=== PATIENT | male | born 1935 | race Caucasian/White ===

== ENCOUNTER 2022-02-16 16:18 | Inpatient (IN) | payer MEDICARE ==
[2022-02-16] MEDS ORDERED: SODIUM CHLORIDE 0.9% 500 ML 500 ML IV STA (16:56)
[2022-02-16 17:41] LABS: Basophils % (A) 0 %; Eosinophils # (A) 0.1 k/uL (0-0.7); Eosinophils % (A) 1 %; HGB 7.8 gm/dL (13.0-17.5); Hypochromasia Slight; Lymphocytes # (A) 1.3 k/uL (1.0-4.8); Lymphocytes % (A) 21 %; MCH 33.3 pg (25.0-35.0); MCHC 32.6 g/dL (31.0-37.0); MCV 102.2 fL (80.0-100.0); Macrocytosis Slight; Mean Platelet Volume 7.9; Monocytes # (A) 0.3 k/uL (0-1.0); Monocytes % (A) 5 %; Neutrophils # (A) 4.3 k/uL (1.3-7.7); Neutrophils % (A) 69 %; Platelet Count 223 k/uL (150-450); RBC 2.35 m/uL (4.30-5.90); RDW 14.3 % (11.5-15.5); WBC 6.2 k/uL (3.8-10.6)
[2022-02-16 17:47] LABS: Calcium 8.8 mg/dL (8.4-10.2); Potassium 4.8 mmol/L (3.5-5.1); Total Bilirubin 0.2 mg/dL (0.2-1.3); Total Protein 6.2 g/dL (6.3-8.2)
[2022-02-16 17:59] LABS: Prothrombin Time 10.5 sec (9.0-12.0)
[2022-02-16 18:03] LABS: Partial Thromboplastin Time 21.6 sec (22.0-30.0)
--- NOTE | 2022-02-16 18:08 | XR ---
EXAMINATION TYPE: XR chest 2V DATE OF EXAM: 02/16/2022 COMPARISON: NONE HISTORY: Cough TECHNIQUE: Frontal and lateral views of the chest are obtained. FINDINGS: There is no focal air space opacity, pleural effusion, or pneumothorax seen. The cardiac silhouette size is within normal limits. Prior cardiothoracic postsurgical changes seen. The osseous structures are intact. IMPRESSION: No acute cardiopulmonary process.
--- NOTE | 2022-02-16 18:11 | ED ---
General Adult HPI - General Chief complaint: GI Bleed Stated complaint: Dizziness,Weakness Time Seen by Provider: 02/16/22 16:55 Source: patient Mode of arrival: ambulatory Limitations: no limitations - History of Present Illness Initial comments: Ba is a pleasant 87-year-old gentleman who presents the emergency department today for evaluation of generalized weakness and near-syncope. Patient reports he's been feeling unwell for approximately a month, he did have outpatient labs done 9 days ago which showed some anemia with hemoglobin of 9.0. He followed with his primary care physician on Thursday and was started on a PPI as well as iron supplementation. Patient states that today he walked up the stairs to use the computer he got very lightheaded and thought he was given a past out, he felt better after sitting down but because he nearly passed out and has been feeling so weak he decided to come to the ER for evaluation. Patient denies any chest pain. He does have exertional shortness of breath. No fevers or chills. He has been having dark stools for over a month. - Related Data Home Medications Medication Instructions Recorded Confirmed ALPRAZolam [Xanax] 0.25 mg PO BID PRN 02/16/22 02/16/22 Aspirin EC [Ecotrin Low Dose] 81 mg PO DAILY 02/16/22 02/16/22 Bumetanide [BUMEX] See Taper PO DAILY 02/16/22 02/16/22 Ferrous Sulfate [Iron] 325 mg PO DAILY 02/16/22 02/16/22 Losartan Potassium 100 mg PO DAILY 02/16/22 02/16/22 Melatonin 5 mg PO HS PRN 02/16/22 02/16/22 Metoprolol Succinate (ER) [Toprol 100 mg PO DAILY 02/16/22 02/16/22 Xl] Multivitamins, Thera [Multivitamin 1 tab PO DAILY 02/16/22 02/16/22 (formulary)] Pantoprazole Sodium [Protonix] 40 mg PO DAILY 02/16/22 02/16/22 Pravastatin Sodium [Pravachol] 40 mg PO DAILY 02/16/22 02/16/22 amLODIPine [Norvasc] 5 mg PO DAILY 02/16/22 02/16/22 Allergies Allergy/AdvReac Type Severity Reaction Status Date / Time No Known Allergies Allergy Verified 02/16/22 16:37 Review of Systems ROS Statement: Those systems with pertinent positive or pertinent negative responses have been documented in the HPI. ROS Other: All systems not noted in ROS Statement are negative. Past Medical History Past Medical History: Cancer, Hyperlipidemia, Hypertension History of Any Multi-Drug Resistant Organisms: None Reported Past Surgical History: Coronary Bypass/CABG, Heart Catheterization With Stent, Hernia Repair, Orthopedic Surgery, Pacemaker, Prostate Surgery Past Psychological History: No Psychological Hx Reported Smoking Status: Former smoker Past Alcohol Use History: Daily Past Drug Use History: None Reported General Exam - General Exam Comments Initial Comments: Physical Exam GENERAL: Chronically ill appearing, pale Patient is well-developed and well-nourished. Patient is nontoxic and well-hydrated and is in no distress. HENT: Normocephalic, Atraumatic. EYES: PERRL, EOMI Conjunctival Pallor PULMONARY: Unlabored respirations. Crackles at bases CARDIOVASCULAR: There is a regular rate and rhythm without any murmurs gallops or rubs. ABDOMEN: Soft and nontender with normal bowel sounds. SKIN: Pale Skin is clear with no lesions or rashes and otherwise unremarkable. : Deferred NEUROLOGIC: Patient is alert and oriented x3. Moving all extremities spontaneously MUSCULOSKELETAL: Normal extremities with adequate strength and full range of motion. No lower extremity swelling or edema. No calf tenderness. PSYCHIATRIC: Normal psychiatric evaluation. Limitations: no limitations Course Vital Signs 02/16/22 16:32 Temperature 97.5 F L Pulse Rate 55 L Respiratory 16 Rate Blood Pressure 110/43 O2 Sat by Pulse 100 Oximetry Medical Decision Making - Medical Decision Making The patient was seen and evaluated, history is obtained from the patient, patient appears pale he had a near syncopal episode and reports he's had one m onth of melena, patient currently on a PPI as well as iron supplementation. Repeat labs today reveal worsening anemia with a hemoglobin of only 7.8. This time we'll plan with the patient in observation unit for evaluation by GI. Patient care was discussed with Dr. Cardona who accepts the admission. - Lab Data Result diagrams: 02/16/22 17:02 02/16/22 17:02 Lab Results 02/16/22 02/16/22 02/16/22 Range/Units 17:00 17:02 17:02 WBC 6.2 (3.8-10.6) k/uL RBC 2.35 L (4.30-5.90) m/uL Hgb 7.8 L (13.0-17.5) gm/dL Hct 24.0 L (39.0-53.0) % MCV 102.2 H (80.0-100.0) fL MCH 33.3 (25.0-35.0) pg MCHC 32.6 (31.0-37.0) g/dL RDW 14.3 (11.5-15.5) % Plt Count 223 (150-450) k/uL MPV 7.9 Neutrophils % 69 % Lymphocytes % 21 % Monocytes % 5 % Eosinophils % 1 % Basophils % 0 % Neutrophils # 4.3 (1.3-7.7) k/uL Lymphocytes # 1.3 (1.0-4.8) k/uL Monocytes # 0.3 (0-1.0) k/uL Eosinophils # 0.1 (0-0.7) k/uL Basophils # 0.0 (0-0.2) k/uL Hypochromasia Slight Macrocytosis Slight PT 10.5 (9.0-12.0) sec INR 1.0 (<1.2) APTT 21.6 L (22.0-30.0) sec Sodium (137-145) mmol/L Potassium (3.5-5.1) mmol/L Chloride (98-107) mmol/L Carbon Dioxide (22-30) mmol/L Anion Gap mmol/L BUN (9-20) mg/dL Creatinine (0.66-1.25) mg/dL Est GFR (CKD-EPI)AfAm (>60 ml/min/1.73 sqM) Est GFR (CKD-EPI)NonAf (>60 ml/min/1.73 sqM) Glucose (74-99) mg/dL Plasma Lactic Acid Christo (0.7-2.0) mmol/L Calcium (8.4-10.2) mg/dL Total Bilirubin (0.2-1.3) mg/dL AST (17-59) U/L ALT (4-49) U/L Alkaline Phosphatase (38-126) U/L Total Protein (6.3-8.2) g/dL Albumin (3.5-5.0) g/dL Blood Type Blood Type Confirm A Positive Blood Type Recheck Bld Type Recheck Status Antibody Screen Spec Expiration Date 02/16/22 02/16/22 02/16/22 Range/Units 17:02 17:02 17:15 WBC (3.8-10.6) k/uL RBC (4.30-5.90) m/uL Hgb (13.0-17.5) gm/dL Hct (39.0-53.0) % MCV (80.0-100.0) fL MCH (25.0-35.0) pg MCHC (31.0-37.0) g/dL RDW (11.5-15.5) % Plt Count (150-450) k/uL MPV Neutrophils % % Lymphocytes % % Monocytes % % Eosinophils % % Basophils % % Neutrophils # (1.3-7.7) k/uL Lymphocytes # (1.0-4.8) k/uL Monocytes # (0-1.0) k/uL Eosinophils # (0-0.7) k/uL Basophils # (0-0.2) k/uL Hypochromasia Macrocytosis PT (9.0-12.0) sec INR (<1.2) APTT (22.0-30.0) sec Sodium 135 L (137-145) mmol/L Potassium 4.8 (3.5-5.1) mmol/L Chloride 102 (98-107) mmol/L Carbon Dioxide 26 (22-30) mmol/L Anion Gap 7 mmol/L BUN 28 H (9-20) mg/dL Creatinine 1.65 H (0.66-1.25) mg/dL Est GFR (CKD-EPI)AfAm 43 (>60 ml/min/1.73 sqM) Est GFR (CKD-EPI)NonAf 37 (>60 ml/min/1.73 sqM) Glucose 110 H (74-99) mg/dL Plasma Lactic Acid Christo 1.1 (0.7-2.0) mmol/L Calcium 8.8 (8.4-10.2) mg/dL Total Bilirubin 0.2 (0.2-1.3) mg/dL AST 27 (17-59) U/L ALT 15 (4-49) U/L Alkaline Phosphatase 38 (38-126) U/L Total Protein 6.2 L (6.3-8.2) g/dL Albumin 4.0 (3.5-5.0) g/dL Blood Type A Positive Blood Type Confirm Blood Type Recheck No Previous Record Bld Type Recheck Status CABO Indicated Antibody Screen NEGATIVE Spec Expiration Date 02/19/20222314 Disposition Clinical Impression: Blood loss anemia, Melena, LUPE (acute kidney injury) Disposition: ADMITTED IP TO THIS [facility] Condition: Serious Referrals: Kuldip Bautista MD [Primary Care Provider] - 1-2 days
[2022-02-16] MEDS ORDERED: NALOXONE 0.4 MG/ML 1 ML VIAL IV PRN (18:38)
[2022-02-17] MEDS ORDERED: MELATONIN 5 MG TABLET PO PRN (07:57)
[2022-02-17] MEDS ORDERED: ALPRAZolam 0.25 MG TAB PO PRN (07:57)
[2022-02-17 08:36] LABS: HCT 24.4 % (39.0-53.0); HGB 7.6 gm/dL (13.0-17.5); Hypochromasia Slight; MCH 32.6 pg (25.0-35.0); MCHC 31.1 g/dL (31.0-37.0); Macrocytosis Moderate; Platelet Count 194 k/uL (150-450); RBC 2.33 m/uL (4.30-5.90); WBC 6.2 k/uL (3.8-10.6)
[2022-02-17] MEDS ORDERED: SODIUM FERRIC GLUCONAT-SUCROSE 125 MG in SODIUM CHLORIDE 0.9% 100 ML IVPB ONE (08:45)
[2022-02-17 08:47] LABS: African American GFR (CKD) 47 (>60 ml/min/1.73 sqM); Anion Gap 6 mmol/L; Blood Urea Nitrogen 24 mg/dL (9-20); Calcium 8.4 mg/dL (8.4-10.2); Carbon Dioxide 27 mmol/L (22-30); Chloride 106 mmol/L (98-107); Glucose 110 mg/dL (74-99); Non-African American GFR(CKD) 40 (>60 ml/min/1.73 sqM); Potassium 4.6 mmol/L (3.5-5.1); Sodium 139 mmol/L (137-145)
[2022-02-17] MEDS: PANTOPRAZOLE 40 MG/10 ML VIAL IVP SCH ×2 (09:03→21:07)
[2022-02-17] MEDS: METOPROLOL SUCCINATE (ER) 100 MG TAB.ER.24H PO SCH (09:03)
[2022-02-17] MEDS: PRAVASTATIN SODIUM 40 MG TAB PO SCH (09:03)
[2022-02-17] MEDS: FERROUS SULFATE 325 MG TAB PO SCH (09:03)
[2022-02-17] MEDS: MULTIVITAMINS, THERA 1 EACH TAB PO SCH (09:03)
[2022-02-17] MEDS: amLODIPine 5 MG TAB PO SCH (09:03)
[2022-02-17] MEDS: SODIUM CHLORIDE 0.9% 1,000 ML IV SCH ×2 (09:03→21:09)
--- NOTE | 2022-02-17 09:40 | P.HPIM ---
History of Present Illness H&P Date: 02/17/22 HISTORY OF PRESENT ILLNESS This is an 87-year-old male patient of Dr. Bautista with past medical history of hypertension, hyperlipidemia, coronary artery disease status post CABG, status post permanent pacemaker, history of prostate cancer, chronic kidney disease stage III, chronic anemia, borderline diabetes. Patient follows with enterprise resource planning consultant Dr. Villagran. Patient came back from [place] this year with increased confusion from his baseline. Patient was recently in the office found to have a hemoglobin of 9.0 and started on Protonix and iron. Patient has had generalized weakness for the past month. He denies having any abdominal pain and no diarrhea. Patient also complaining of head congestion and sinus drainage. Patient presented to [facility] emergency center and found to be afebrile, heart rate 55, blood pressure 110/43, pulse ox 100% on room air. WBC 6.2, hemoglobin 7.8, platelet count 223. INR 1.0. Sodium 135, potassium 4.8, chloride 102, CO2 26, BUN 28 creatinine 1.65. Blood sugar 110. Lactic acid 1.1. Calcium 8.8. Liver function tests were normal. Troponin negative. Albumin 4.0. Stool for occult blood positive. Chest x-ray reveals no acute cardiopulmonary process. Patient is status post 0.5 L IV fluid, placed on the observation unit and consult with GI, Iron infusion ordered. REVIEW OF SYSTEMS Constitutional: No fever, no chills, no night sweats. No weight change. Reports weakness, Reports fatigue no lethargy. No daytime sleepiness. EENT: No headache. No blurred vision or double vision, no loss of vision. No loss of Hearing, no ringing in the ears, no dizziness. Reports nasal drainage or congestion. No epistaxis. No sore throat. Lungs: No shortness of breath, cough, no sputum production. No wheezing. Cardiovascular: No chest pain, no lower extremity edema. No palpitations. No paroxysmal nocturnal dyspnea. No orthopnea. No lightheadedness or dizziness. No syncopal episodes. Abdominal: No abdominal pain. No nausea, vomiting. No diarrhea. No constipation. Reports tarry stools. No loss of appetite. Genitourinary: No dysuria, increased frequency, urgency. No urinary retention. Musculoskeletal: No myalgias. No muscle weakness, no gait dysfunction, no frequent falls. No back pain. No neck pain. Integumentary: No wounds, no lesions. No rash or pruritus. No unusual bruising. No change in hair or nails. Neurologic: No aphasia. No facial droop. Reports chronic change in mentation. No head injury. No headache. No paralysis. No paresthesia. Psychiatric: No depression. No anxiety. No mood swings. Endocrine: No abnormal blood sugars. No weight change. No excessive sweating or thirst. No cold intolerance. SOCIAL HISTORY Patient smoked in the distant past briefly only. No alcohol use, no illicit drug use. He lives with his of 67 years. They winter in [place]. FAMILY HISTORY Father is from alcohol complications. Mother in her 70s patient does not recall her health history. Patient has 1 brother and 1 sister and is unable to recall their health history. Patient has 3 children one daughter from some type of cancer. 2 other children are without any major medical problems. PHYSICAL EXAMINATION Gen: This is an 87-year-old male. He is resting bed appears to be comfortable and in no acute distress. HEENT: Head is atraumatic, normocephalic. Pupils equal, round. Sclerae is anicteric. NECK: Supple. No JVD. No lymphadenopathy. No thyromegaly. LUNGS: Clear to auscultation. No wheezes or rhonchi. No intercostal retractions. HEART: Regular rate and rhythm. No murmur. ABDOMEN: Soft. Bowel sounds are present. No masses. No tenderness. EXTREMITIES: No pedal edema. No calf tenderness. NEUROLOGICAL: Patient is awake, alert and oriented x3. Cranial nerves 2 through 12 are grossly intact. ASSESSMENT AND PLAN 1. Acute GI bleed with tarry stools. Repeat hemoglobin, GI consult for EGD and colonoscopy scheduled for tomorrow, Protonix 40 g IV push twice daily, start patient on IV fluids 0.9 normal saline at 75 mL per hour. 2. Acute blood loss anemia due to acute GI bleed. Patient will undergo infusion of Ferrlecit 1, recheck hemoglobin and monitor closely. 3. Hypertension, blood pressure currently soft. Resume Norvasc 5 mg daily, hold losartan, Bumex. 4. Hyperlipidemia. Continue pravastatin 40 mg daily. 5. Coronary artery disease with previous CABG. Continue Toprol-XL 100 mg d aily, pravastatin. 6. History of prostate cancer, stable. 7. History of permanent pacemaker, stable. 8. Chronic kidney disease stage III with baseline creatinine of 1.5. 9. Chronic ALLERGIES. Patient started on Flonase and Claritin. 10. Borderline diabetes. Patient not currently on medications. 11. GI prophylaxis. Protonix. 12. DVT prophylaxis. SCDs and EDEN hose. Patient will be admitted to the hospital for a minimum of 2 night stay. DISCHARGE PLAN Most likely return home. PT and OT consults added. Impression and plan of care have been directed as dictated by the signing physician. Mary Leiva nurse practitioner acting as scribe for signing ph ysician. Past Medical History Past Medical History: Cancer, Hyperlipidemia, Hypertension History of Any Multi-Drug Resistant Organisms: None Reported Past Surgical History: Coronary Bypass/CABG, Heart Catheterization With Stent, Hernia Repair, Orthopedic Surgery, Pacemaker, Prostate Surgery Past Anesthesia/Blood Transfusion Reactions: No Reported Reaction Date of Last Stent Placement:: unsure Type of Cardiac Device: Permanent Pacemaker Device Placement Date:: unsure Past Psychological History: No Psychological Hx Reported Smoking Status: Never smoker Past Alcohol Use History: Daily Past Drug Use History: None Reported Medications and Allergies Home Medications Medication Instructions Recorded Confirmed Type ALPRAZolam [Xanax] 0.25 mg PO BID PRN 02/16/22 02/16/22 History Aspirin EC [Ecotrin Low Dose] 81 mg PO DAILY 02/16/22 02/16/22 History Bumetanide [BUMEX] See Taper PO DAILY 02/16/22 02/16/22 History Ferrous Sulfate [Iron] 325 mg PO DAILY 02/16/22 02/16/22 History Losartan Potassium 100 mg PO DAILY 02/16/22 02/16/22 History Melatonin 5 mg PO HS PRN 02/16/22 02/16/22 History Metoprolol Succinate (ER) [Toprol 100 mg PO DAILY 02/16/22 02/16/22 History Xl] Multivitamins, Thera [Multivitamin 1 tab PO DAILY 02/16/22 02/16/22 History (formulary)] Pantoprazole Sodium [Protonix] 40 mg PO DAILY 02/16/22 02/16/22 History Pravastatin Sodium [Pravachol] 40 mg PO DAILY 02/16/22 02/16/22 History amLODIPine [Norvasc] 5 mg PO DAILY 02/16/22 02/16/22 History Allergies Allergy/AdvReac Type Severity Reaction Status Date / Time No Known Allergies Allergy Verified 02/16/22 16:37 Physical Exam Vitals: Vital Signs Temp Pulse Pulse Resp BP BP Pulse Ox 02/17/22 01:45 97.5 F L 58 L 18 106/46 96 02/17/22 01:27 18 02/16/22 22:26 18 02/16/22 19:45 97.8 F 55 L 18 138/71 100 02/16/22 19:40 97.8 F 55 L 18 138/71 100 02/16/22 19:08 97.5 F L 60 18 133/64 98 02/16/22 18:16 60 18 133/64 98 02/16/22 16:32 97.5 F L 55 L 16 110/43 100 Intake and Output 02/16/22 02/17/22 02/17/22 22:59 06:59 14:59 Other: Voiding Method Toilet Toilet # Voids 2 2 Weight 76.204 kg Results CBC & Chem 7: 02/17/22 08:19 02/17/22 08:19 Labs: Abnormal Lab Results - Last 24 Hours (Table) 02/16/22 02/16/22 02/16/22 Range/Units 17:02 17:02 17:02 RBC 2.35 L (4.30-5.90) m/uL Hgb 7.8 L (13.0-17.5) gm/dL Hct 24.0 L (39.0-53.0) % MCV 102.2 H (80.0-100.0) fL APTT 21.6 L (22.0-30.0) sec Sodium 135 L (137-145) mmol/L BUN 28 H (9-20) mg/dL Creatinine 1.65 H (0.66-1.25) mg/dL Glucose 110 H (74-99) mg/dL Total Protein 6.2 L (6.3-8.2) g/dL Thrombosis Risk Factor Assmnt - Choose All That Apply Any of the Below Risk Factors Present?: No Other Risk Factors: Yes Each Risk Factor Represents 3 Points: Age 75 years or older Other congenital or acquired thrombophilia - If yes, enter type in comment: No Thrombosis Risk Factor Assessment Total Risk Factor Score: 3 Thrombosis Risk Factor Assessment Level: Moderate Risk
[2022-02-17] MEDS ORDERED: PEG 3350-NA SULF,BICARB,CL/KCL 4,000 ML BOTTLE PO ONE (15:00)
--- NOTE | 2022-02-17 15:03 | P.CONS ---
History of Present Illness - Reason for Consult Consult date: 02/17/22 Anemia, GI bleed Requesting physician: Kuldip Bautista - Chief Complaint Dizziness, weakness - History of Present Illness This is an 87-year-old male patient of Dr. Bautista with past medical history of hypertension, hyperlipidemia, coronary artery disease status post CABG, status post permanent pacemaker, history of prostate cancer, chronic kidney disease stage III, chronic anemia, borderline diabetes. Patient follows with mail censor Dr. Villagran. Patient was recently in the office found to have a hemoglobin of 9.0 and started on Protonix and iron. Patient has had generalized weakness for the past month. states that he has been having increased hea d congestion, nasal congestion and output. States that he's been feeling dizzy from it. States he's been using antihistamines without much help. On admission patient was known to have a hemoglobin 7.8. Gastroenterology was consulted for anemia with possible GI bleed. Patient reports black stools for the last 1-2 week duration. Denies any NSAID use, no acid reflux, generally uses Tylenol for pain. Last colonoscopy he reports is greater than 10 years ago. No history of peptic ulcer disease or EGD. Patient did have a possible occult stool. WBC 6.2 hemoglobin 2.7.6 hematocrit 24 platelet count 194,000. INR 1.0 BUN 24 creatinine 1.3 total bilirubin 0.2 AST 27 ALT 15 alkaline phosphatase 38 Review of Systems REVIEW OF SYSTEMS: CARDIOPULMONARY: No chest pain or shortness of breath. Gastrointestinal: No abdominal pain.. No nausea or vomiting. No hematemesis, coffee-ground emesis. Black stool 1-2 weeks duration. No rectal bleeding GENITOURINARY: No dysuria or hematuria. MUSCULOSKELETAL: Reports normal range of motion., Joint pain. SKIN: No rashes. No jaundice. ENDOCRINE: No chills, fevers. No excessive weight gain or loss. No polydipsia or polyuria. PSYCHIATRIC: Unremarkable. NEUROLOGY: No change in mental status. Dizziness, sinus pressure. ENT: Vision unremarkable. CONSTITUTIONAL: No recent weight loss. No fever, chills, night sweats. Increased weakness. Past Medical History Past Medical History: Cancer, Hyperlipidemia, Hypertension History of Any Multi-Drug Resistant Organisms: None Reported Past Surgical History: Coronary Bypass/CABG, Heart Catheterization With Stent, Hernia Repair, Orthopedic Surgery, Pacemaker, Prostate Surgery Past Anesthesia/Blood Transfusion Reactions: No Reported Reaction Date of Last Stent Placement:: unsure Type of Cardiac Device: Permanent Pacemaker Device Placement Date:: unsure Past Psychological History: No Psychological Hx Reported Smoking Status: Never smoker Past Alcohol Use History: Daily Past Drug Use History: None Reported Medications and Allergies Home Medications Medication Instructions Recorded Confirmed Type ALPRAZolam [Xanax] 0.25 mg PO BID PRN 02/16/22 02/16/22 History Aspirin EC [Ecotrin Low Dose] 81 mg PO DAILY 02/16/22 02/16/22 History Bumetanide [BUMEX] See Taper PO DAILY 02/16/22 02/16/22 History Ferrous Sulfate [Iron] 325 mg PO DAILY 02/16/22 02/16/22 History Losartan Potassium 100 mg PO DAILY 02/16/22 02/16/22 History Melatonin 5 mg PO HS PRN 02/16/22 02/16/22 History Metoprolol Succinate (ER) [Toprol 100 mg PO DAILY 02/16/22 02/16/22 History Xl] Multivitamins, Thera [Multivitamin 1 tab PO DAILY 02/16/22 02/16/22 History (formulary)] Pantoprazole Sodium [Protonix] 40 mg PO DAILY 02/16/22 02/16/22 History Pravastatin Sodium [Pravachol] 40 mg PO DAILY 02/16/22 02/16/22 History amLODIPine [Norvasc] 5 mg PO DAILY 02/16/22 02/16/22 History Allergies Allergy/AdvReac Type Severity Reaction Status Date / Time No Known Allergies Allergy Verified 02/16/22 16:37 Physical Exam Vitals: Vital Signs Temp Pulse Pulse Resp BP BP BP 02/17/22 08:00 66 02/17/22 07:00 97.9 F 66 16 120/61 02/17/22 01:45 97.5 F L 58 L 18 106/46 02/17/22 01:27 18 02/16/22 22:26 18 02/16/22 19:45 97.8 F 55 L 18 138/71 02/16/22 19:40 97.8 F 55 L 18 138/71 02/16/22 19:08 97.5 F L 60 18 133/64 02/16/22 18:16 60 18 133/64 02/16/22 16:32 97.5 F L 55 L 16 110/43 Pulse Ox 02/17/22 08:00 02/17/22 07:00 96 02/17/22 01:45 96 02/17/22 01:27 02/16/22 22:26 02/16/22 19:45 100 02/16/22 19:40 100 02/16/22 19:08 98 02/16/22 18:16 98 02/16/22 16:32 100 Intake and Output 02/16/22 02/17/22 02/17/22 22:59 06:59 14:59 Other: Voiding Method Toilet Toilet Toilet # Voids 2 2 Weight 76.204 kg General appearance: The patient is alert, oriented, appears in no acute distress. HET: Head is normocephalic and atraumatic. Conjunctiva pink. Sclera anicteric. Neck: Supple without lymphadenopathy. Trachea midline. Heart: S1 S2. Regular rate and rhythm. Lungs: Clear to auscultation. Abdomen: Soft, nontender, nondistended with bowel sounds. No guarding or rigidity. Skin: No rashes. No jaundice. Extremities: Normal skin color and turgor. No pedal edema. Neurological: No focal deficits. Alert and oriented x3. Results CBC & Chem 7: 02/17/22 08:19 02/17/22 08:19 Labs: Abnormal Lab Results - Last 24 Hours (Table) 02/16/22 02/16/22 02/16/22 Range/Units 17:02 17:02 17:02 RBC 2.35 L (4.30-5.90) m/uL Hgb 7.8 L (13.0-17.5) gm/dL Hct 24.0 L (39.0-53.0) % MCV 102.2 H (80.0-100.0) fL APTT 21.6 L (22.0-30.0) sec Sodium 135 L (137-145) mmol/L BUN 28 H (9-20) mg/dL Creatinine 1.65 H (0.66-1.25) mg/dL Glucose 110 H (74-99) mg/dL Total Protein 6.2 L (6.3-8.2) g/dL 05/23/22 05/23/22 Range/Units 08:19 08:19 RBC 2.33 L (4.30-5.90) m/uL Hgb 7.6 L (13.0-17.5) gm/dL Hct 24.4 L (39.0-53.0) % MCV 105.0 H (80.0-100.0) fL APTT (22.0-30.0) sec Sodium (137-145) mmol/L BUN 24 H (9-20) mg/dL Creatinine 1.53 H (0.66-1.25) mg/dL Glucose 110 H (74-99) mg/dL Total Protein (6.3-8.2) g/dL Assessment and Plan (1) Anemia Narrative/Plan: 87-year-old male who presented to the emergency department with increased weakness. He had been reporting black stool over the last 1-2 weeks duration. He was seen outpatient had a hemoglobin of 9 was started on oral iron. He denies any abdominal pain, nausea or vomiting. No NSAID use, acid reflux or history of peptic ulcer disease. No previous EGD. Last colonoscopy was greater than 10 years ago. On admission he was known to be anemic at 7.6. Currently receiving IV iron. We'll proceed with EGD and colonoscopy as patient has not had a colonoscopy in greater than 10 years. Avoid NSAIDs. Protonix 40 mg daily GI prophylaxis. Iron studies ordered. Current Visit: Yes Status: Acute Code(s): D64.9 - ANEMIA, UNSPECIFIED SN OMED Code(s): 293975426 (2) Occult blood positive stool Current Visit: Yes Status: Acute Code(s): R19.5 - OTHER FECAL ABNORMALITIES SNOMED Code(s): 38490544 (3) Melena Current Visit: Yes Status: Acute Code(s): K92.1 - MELENA SNOMED Code(s): 9560841 Plan: 1. Continue symptomatic and supportive care 2. Daily CBC, transfuse for hemoglobin less than 7 3. Clear liquid diet, nothing by mouth after midnight 4. Bowel prep this afternoon 5. Will proceed with EGD and colonoscopy tomorrow. Procedures discussed with patient including risk and benefits. Patient willing to proceed. 6. Iron studies ordered Thank you for this consultation, we will continue to follow Dr. Bubba Dotson I agree with the dictator's note, documented as a scribe by Moriah Day.
[2022-02-17 16:08] LABS: % Iron Saturation 5.6 (15.00-50.00); Ferritin 51.3 ng/mL (22.0-322.0)
[2022-02-18] MEDS: FERROUS SULFATE 325 MG TAB PO SCH (09:15)
[2022-02-18] MEDS: MULTIVITAMINS, THERA 1 EACH TAB PO SCH (09:15)
[2022-02-18] MEDS: METOPROLOL SUCCINATE (ER) 100 MG TAB.ER.24H PO SCH (09:15)
[2022-02-18] MEDS: amLODIPine 5 MG TAB PO SCH (09:15)
[2022-02-18] MEDS: PRAVASTATIN SODIUM 40 MG TAB PO SCH (09:15)
[2022-02-18] MEDS: PANTOPRAZOLE 40 MG/10 ML VIAL IVP SCH ×2 (09:15→20:11)
[2022-02-18] MEDS: SODIUM FERRIC GLUCONAT-SUCROSE 125 MG in SODIUM CHLORIDE 0.9% 100 ML IVPB SCH (09:16)
[2022-02-18 09:26] LABS: HCT 21.7 % (39.6-50.0); MCH 32.7 pg (27.0-32.0); MCHC 32.3 g/dL (32.0-37.0); MCV 101.4 fL (80.0-97.0); Mean Platelet Volume 10.2 fL (9.5-12.2); NRBC Per 100 WBC 0.4 /100 WBCS (0.0-0.0); Platelet Count 171 X 10*3/uL (140-440); RBC 2.14 X 10*6/uL (4.40-5.60); RDW 14.6 % (11.5-14.5); WBC 5.47 X 10*3/uL (4.50-10.00)
[2022-02-18 09:34] LABS: Anion Gap 11.7 mmol/L (10.00-18.00); BUN/Creat Ratio 12.21 Ratio (12.00-20.00); Blood Urea Nitrogen 17.1 mg/dL (9.0-27.0); Calcium 8.5 mg/dL (8.7-10.3); Carbon Dioxide 24.3 mmol/L (20.0-27.5); Non-African American GFR(CKD) 44.9 (60.0-200.0)
--- NOTE | 2022-02-18 10:10 | P.PN ---
Subjective Progress Note Date: 02/18/22 HISTORY OF PRESENT ILLNESS This is an 87-year-old male patient of Dr. Bautista with past medical history of hypertension, hyperlipidemia, coronary artery disease status post CABG, status post permanent pacemaker, history of prostate cancer, chronic kidney disease stage III, chronic anemia, borderline diabetes. Patient follows with mail carrier Dr. Villagran. Patient came back from [place] this year with increased confusion from his baseline. Patient was recently in the office found to have a hemoglobin of 9.0 and started on Protonix and iron. Patient has had generalized weakness for the past month. He denies having any abdominal pain and no diarrhea. Patient also complaining of head congestion and sinus drainage. Patient presented to [facility] emergency center and found to be afebrile, heart rate 55, blood pressure 110/43, pulse ox 100% on room air. WBC 6.2, hemoglobin 7.8, platelet count 223. INR 1.0. Sodium 135, potassium 4.8, chloride 102, CO2 26, BUN 28 creatinine 1.65. Blood sugar 110. Lactic acid 1.1. Calcium 8.8. Liver function tests were normal. Troponin negative. Albumin 4.0. Stool for occult blood positive. Chest x-ray reveals no acute cardiopulmonary process. Patient is status post 0.5 L IV fluid, placed on the observation unit and consult with GI, Iron infusion ordered. 02/18: Patient is scheduled for EGD and colonoscopy today with Dr. Dotson. Repeat hemoglobin is 7.0. BUN 17 creatinine 1.4. Patient has been having more confusion overnight, refused IV fluids and he did dress himself in his street clothes today. Patient needs frequent redirection. Ferrlecit infusion added for today and tomorrow and patient will be transfused 1 unit of packed RBCs. Patient has been seen by therapy with recommendations for home with home care. REVIEW OF SYSTEMS Constitutional: No fever, no chills, no night sweats. No weight change. Reports weakness, Reports fatigue no lethargy. No daytime sleepiness. EENT: No headache. No blurred vision or double vision, no loss of vision. No loss of Hearing, no ringing in the ears, no dizziness. Reports nasal drainage or congestion. No epistaxis. No sore throat. Lungs: No shortness of breath, cough, no sputum production. No wheezing. Cardiovascular: No chest pain, no lower extremity edema. No palpitations. No paroxysmal nocturnal dyspnea. No orthopnea. No lightheadedness or dizziness. No syncopal episodes. Abdominal: No abdominal pain. No nausea, vomiting. No diarrhea. No constipation. Reports tarry stools. No loss of appetite. Genitourinary: No dysuria, increased frequency, urgency. No urinary retention. Musculoskeletal: No myalgias. No muscle weakness, no gait dysfunction, no frequent falls. No back pain. No neck pain. Integumentary: No wounds, no lesions. No rash or pruritus. No unusual bru ising. No change in hair or nails. Neurologic: No aphasia. No facial droop. Reports chronic change in mentation- worsening in the hospital. No head injury. No headache. No paralysis. No paresthesia. Psychiatric: No depression. No anxiety. No mood swings. Endocrine: No abnormal blood sugars. No weight change. No excessive sweating or thirst. No cold intolerance. PHYSICAL EXAMINATION Gen: This is an 87-year-old male. He is resting in a wheelchair appears to be comfortable and in no acute distress. HEENT: Head is atraumatic, normocephalic. Pupils equal, round. Sclerae is anicteric. NECK: Supple. No JVD. No lymphadenopathy. No thyromegaly. LUNGS: Clear to auscultation. No wheezes or rhonchi. No intercostal retractions. HEART: Regular rate and rhythm. No murmur. ABDOMEN: Soft. Bowel sounds are present. No masses. No tenderness. EXTREMITIES: No pedal edema. No calf tenderness. NEUROLOGICAL: Patient is awake, alert and oriented to person only. Patient is confused, requires redirection ASSESSMENT AND PLAN 1. Acute GI bleed with tarry stools. Repeat hemoglobin, GI consult for EGD and colonoscopy today, Protonix 40 g IV push twice daily, start patient on IV fluids 0.9 normal saline at 75 mL per hour. 2. Acute blood loss anemia due to acute GI bleed. Patient is status post 1 infusion of Ferrlecit 1. Patient will also receive a repeat dose of Ferrlecit today and tomorrow, transfuse 1 unit packed RBCs, continue to monitor hemoglobin closely. 3. Hypertension, blood pressure currently soft. Resume Norvasc 5 mg daily, hold losartan, Bumex. 4. Hyperlipidemia. Continue pravastatin 40 mg daily. 5. Coronary artery disease with previous CABG. Continue Toprol-XL 100 mg daily, pravastatin. 6. History of prostate cancer, stable. 7. History of permanent pacemaker, stable. 8. Chronic kidney disease stage III with baseline creatinine of 1.5. 9. Chronic ALLERGIES. Patient started on Flonase and Claritin. 10. Borderline diabetes. Patient not currently on medications. 11. GI prophylaxis. Protonix. 12. DVT prophylaxis. SCDs and EDEN hose. DISCHARGE PLAN Most likely return home with homecare. Impression and plan of care have been directed as dictated by the signing physician. Mary Leiva nurse practitioner acting as scribe for signing physician. Objective - Vital Signs Vital signs: Vital Signs Temp 97.7 F 02/18/22 07:00 Pulse 67 02/18/22 07:00 Resp 18 02/18/22 07:00 BP 122/64 02/18/22 07:00 Pulse Ox 96 02/18/22 07:00 FiO2 Intake & Output 02/17/22 02/18/22 02/18/22 18:59 06:59 18:59 Other: Voiding Method Toilet Toilet # Voids 2 2 # Bowel Movements 2 - Labs CBC & Chem 7: 02/17/22 08:19 02/17/22 08:19 Labs: Abnormal Lab Results - Last 24 Hours (Table) 02/17/22 02/17/22 02/17/22 Range/Units 08:15 08:19 08:19 RBC 2.33 L (4.30-5.90) m/uL Hgb 7.6 L (13.0-17.5) gm/dL Hct 24.4 L (39.0-53.0) % MCV 105.0 H (80.0-100.0) fL BUN 24 H (9-20) mg/dL Creatinine 1.53 H (0.66-1.25) mg/dL Glucose 110 H (74-99) mg/dL Iron 22 L (65-175) ug/dL % Saturation 5.60 L (15.00-50.00)
[2022-02-18] MEDS ORDERED: IV FLUID CONTINUATION 900 ML IV ONE (11:46)
[2022-02-18] MEDS: SODIUM CHLORIDE 0.9% 1,000 ML IV SCH (12:02)
[2022-02-18] MEDS ORDERED: LIDOCAINE 2% INJ 20 MG/ML (2 ML VIAL) ONE (12:02)
[2022-02-18] MEDS ORDERED: PROPOFOL 10 MG/ML 20 ML VIAL IV ONE (12:02)
--- NOTE | 2022-02-18 12:39 | P.PCN ---
Date of Procedure: 02/18/22 Procedure(s) Performed: Brief history: Patient is a pleasant 87-year-old white male admitted hospital with symptomatic anemia and black tarry stools for the last 2 weeks' duration. Hemoglobin was 10.8 g/dL. He scheduled for an upper endoscopy as well as colonoscopyto evaluate further. Pe[place]edure performed: Esophagogastroduodenoscopy with biopsy Colonoscopy with snare polypectomy Preoperative diagnosis: Anemia and black tarry stools of 2 weeks Anesthesia: MAC Procedure: After informed consent was obtained from the patient was brought into the endoscopy unit and IV sedation was administered by anesthesia under continuous monitoring. Initially upper endoscopy was done. The Olympus GF 160 video endoscope was inserted inserted into the mouth and esophagus intubated with some difficulty the upper esophageal sphincter was slightly tortuous and I was able to slowly advance the scope at the distal esophagus Thent the scope was was gradually advanced into the stomach and duodenum and carefully examined. The bulb and second part of the duodenum appeared normal. abscesses were done from the duodenum to rule out celiac disease The scope was then withdrawn into the stomach adequately insufflated with air and upon careful examination the antrum had erosions and biopsies were done from this area. The sombody, cardia and fundus appeared normal. The scope was then withdrawn into the esophagus. The GE junction was located at 40 cm to the incisors. It appeared regular with no erythema erosions or ulcerations. Rest of the esophagus appeared normal. Patient tolerated the procedure well. At this time the patient continued to remain sedation. Initial digital rectal examination was normal. Olympus CF 160 video colonoscope was then inserted into the rectum and gradually advanced to the cecum without any difficulty. Careful examination was performed as the scope was gradually being withdrawn. The prep was excellent. There was fresh blood with clots noted in the right colon and thorough irrigation was performed. A 1.5 cm broad-based polyp was noted in the base of the cecum that was removed by snare polypectomy. Terminal ileum was intubated and there was yellowish bilious stool noted. After irrigation was performed mucosa of the cecum, ascending colon, transverse colon, descending colon, sigmoid colon and rectum appeared normal. No source of bleeding identified. However there were scattered left-sided diverticulosis seen. Retroflexion was performed in the rectum and no lesions were noted. Patient tolerated the procedure well. Impression: 1. Upper endoscopy revealed mild tortuosity of the upper esophageal sphincter, antral erosive gastritis and small hiatal 2. Colonoscopy revealed diluted blood in the right colon but no obvious source of bleeding identified. 1.5 cm cecal polyp status post polypectomy. Scattered left sided diverticulosis. Recommendations: Findings of this examination were discussed with the patient as well as family. I with the biopsy results. Recent bleeding possibly related to diverticular bleed. He will be started on clear liquids and watch and monitor CBC closely. If no further evidence of bleeding she can have diet and advance as tolerated tomorrow.
[2022-02-18 18:12] LABS: HCT 26.2 % (39.0-53.0); HGB 8.5 gm/dL (13.0-17.5); Hypochromasia Slight; MCH 33.4 pg (25.0-35.0); MCHC 32.5 g/dL (31.0-37.0); MCV 102.7 fL (80.0-100.0); Macrocytosis Slight; Mean Platelet Volume 7.7; Platelet Count 186 k/uL (150-450); RBC 2.55 m/uL (4.30-5.90); RDW 15.5 % (11.5-15.5)
[2022-02-19 03:13] VITALS: RESP 16; TEMP 98.2
[2022-02-19] MEDS: SODIUM CHLORIDE 0.9% 1,000 ML IV SCH (05:29)
[2022-02-19] MEDS: PANTOPRAZOLE 40 MG/10 ML VIAL IVP SCH (07:08)
[2022-02-19] MEDS: amLODIPine 5 MG TAB PO SCH (07:09)
[2022-02-19] MEDS: MULTIVITAMINS, THERA 1 EACH TAB PO SCH (07:09)
[2022-02-19] MEDS: METOPROLOL SUCCINATE (ER) 100 MG TAB.ER.24H PO SCH (07:09)
[2022-02-19] MEDS: FERROUS SULFATE 325 MG TAB PO SCH (07:09)
[2022-02-19] MEDS: PRAVASTATIN SODIUM 40 MG TAB PO SCH (07:10)
[2022-02-19 07:26] VITALS: BP 120/66; PULSE 73
[2022-02-19] MEDS: SODIUM FERRIC GLUCONAT-SUCROSE 125 MG in SODIUM CHLORIDE 0.9% 100 ML IVPB SCH (09:15)
[2022-02-19 10:38] LABS: HCT 24.5 % (39.6-50.0); HGB 7.8 g/dL (13.0-17.0); MCH 32.1 pg (27.0-32.0); MCHC 31.8 g/dL (32.0-37.0); MCV 100.8 fL (80.0-97.0); Mean Platelet Volume 9.9 fL (9.5-12.2); NRBC Per 100 WBC 0.2 /100 WBCS (0.0-0.0); Platelet Count 174 X 10*3/uL (140-440); RBC 2.43 X 10*6/uL (4.40-5.60); RDW 15.7 % (11.5-14.5); WBC 9.96 X 10*3/uL (4.50-10.00)
--- NOTE | 2022-02-19 11:13 | P.DS ---
Providers Date of admission: 02/17/22 09:38 Expected date of discharge: 02/19/22 Attending physician: Kuldip Bautista Consults: 02/16/22 18:38 Consult Physician Stat Consulting Provider: Ynes Dotson Consult Reason/Comments: GI bleeding Do you want consulting provider notified?: Yes, Notify in am Primary care physician: Kuldip [facility] Course: HISTORY OF PRESENT ILLNESS This is an 87-year-old male patient of Dr. Bautista with past medical history of hypertension, hyperlipidemia, coronary artery disease status post CABG, status post permanent pacemaker, history of prostate cancer, chronic kidney disease stage III, chronic anemia, borderline diabetes. Patient follows with roll tension tester Dr. Villagran. Patient came back from [place] this year with inc reased confusion from his baseline. Patient was recently in the office found to have a hemoglobin of 9.0 and started on Protonix and iron. Patient has had generalized weakness for the past month. He denies having any abdominal pain and no diarrhea. Patient also complaining of head congestion and sinus drainage. Patient presented to [facility] emergency center and found to be afebrile, heart rate 55, blood pressure 110/43, pulse ox 100% on room air. WBC 6.2, hemoglobin 7.8, platelet count 223. INR 1.0. Sodium 135, potassium 4.8, chloride 102, CO2 26, BUN 28 creatinine 1.65. Blood sugar 110. Lactic acid 1.1. Calcium 8.8. Liver function tests were normal. Troponin negative. Albumin 4.0. Stool for occult blood positive. Chest x-ray reveals no acute cardiopulmonary process. Patient is status post 0.5 L IV fluid, placed on the observation unit and consult with GI, Iron infusion ordered. 02/18: Patient is scheduled for EGD and colonoscopy today with Dr. Dotson. Repeat hemoglobin is 7.0. BUN 17 creatinine 1.4. Patient has been having more confusion overnight, refused IV fluids and he did dress himself in his street clothes today. Patient needs frequent redirection. Ferrlecit infusion added for today and tomorrow and patient will be transfused 1 unit of packed RBCs. Patient has been seen by therapy with recommendations for home with home care. 02/19: Hemoglobin last night was 8.5 this morning 7.8. No signs of bleeding and no black tarry stools. The patient will be discharged home with follow-up in the office for repeat blood work within the week. Patient is discharged in stable condition. DISCHARGE DIAGNOSES 1. Acute GI bleed with tarry stools. 2. Acute blood loss anemia due to acute GI bleed. 3. Hypertension. 4. Hyperlipidemia. 5. Coronary artery disease with previous CABG. 6. History of prostate cancer, stable. 7. History of permanent pacemaker, stable. 8. Chronic kidney disease stage III with baseline creatinine of 1.5. 9. Chronic ALLERGIES. 10. Borderline diabetes. DISCHARGE PLAN Home Greater than 35 minutes was utilized and coordinating patient's discharge. Impression and plan of care have been directed as dictated by the signing physician. Mary Leiva nurse practitioner acting as scribe for signing physician. Patient Condition at Discharge: Good Plan - Discharge Summary Discharge Rx Participant: No New Discharge Prescriptions: Continue Multivitamins, Thera [Multivitamin (formulary)] 1 tab PO DAILY Metoprolol Succinate (ER) [Toprol XL] 100 mg PO DAILY Losartan Potassium 100 mg PO DAILY ALPRAZolam [Xanax] 0.25 mg PO BID PRN PRN Reason: Anxiety Melatonin 5 mg PO HS PRN PRN Reason: Insomnia amLODIPine [Norvasc] 5 mg PO DAILY Aspirin EC [Ecotrin Low Dose] 81 mg PO DAILY Pravastatin Sodium [Pravachol] 40 mg PO DAILY Pantoprazole Sodium [Protonix] 40 mg PO DAILY Ferrous Sulfate [Iron] 325 mg PO DAILY Bumetanide [BUMEX] See Taper PO DAILY Discharge Medication List ALPRAZolam [Xanax] 0.25 mg PO BID PRN 02/16/22 [History] Aspirin EC [Ecotrin Low Dose] 81 mg PO DAILY 02/16/22 [History] Bumetanide [BUMEX] See Taper PO DAILY 02/16/22 [History] Ferrous Sulfate [Iron] 325 mg PO DAILY 02/16/22 [History] Losartan Potassium 100 mg PO DAILY 02/16/22 [History] Melatonin 5 mg PO HS PRN 02/16/22 [History] Metoprolol Succinate (ER) [Toprol XL] 100 mg PO DAILY 02/16/22 [History] Multivitamins, Thera [Multivitamin (formulary)] 1 tab PO DAILY 02/16/22 [History] Pantoprazole Sodium [Protonix] 40 mg PO DAILY 02/16/22 [History] Pravastatin Sodium [Pravachol] 40 mg PO DAILY 02/16/22 [History] amLODIPine [Norvasc] 5 mg PO DAILY 02/16/22 [History] Follow up Appointment(s)/Referral(s): Kuldip Bautista MD [Primary Care Provider] - 1 Week Patient Instructions/Handouts: Gastrointestinal Bleeding (DC) Discharge Disposition: HOME SELF-CARE
== END 2022-02-19 12:03 | disposition home or self-care (01) | DRG 378 ==
LOC: EC 16:18 → 6NMEDSUR 18:38 → OBSVTOIN 02-17 09:38
PROVIDERS: ADMIT Internal Medicine Geriatric Medicine; ATTEND Internal Medicine Geriatric Medicine
PROC: 30233N1 Transfusion of Nonautologous Red Blood Cells into Peripheral Vein, Percutaneous Approach (ICD-10-PCS; 2022-02-18)
PROC: 0DB78ZX Excision of Stomach, Pylorus, Via Natural or Artificial Opening Endoscopic, Diagnostic (ICD-10-PCS; principal; 2022-02-18 10:20)
PROC: 0DBH8ZX Excision of Cecum, Via Natural or Artificial Opening Endoscopic, Diagnostic (ICD-10-PCS; 2022-02-18 10:20)
DX: K57.31 Diverticulosis of large intestine without perforation or abscess with bleeding (principal); D62 Acute posthemorrhagic anemia; N17.9 Acute kidney failure, unspecified; E78.5 Hyperlipidemia, unspecified; I12.9 Hypertensive chronic kidney disease with stage 1 through stage 4 chronic kidney disease, or unspecified chronic kidney disease; K22.89 Other specified disease of esophagus; J30.2 Other seasonal allergic rhinitis; I25.10 Atherosclerotic heart disease of native coronary artery without angina pectoris; K29.60 Other gastritis without bleeding; K63.5 Polyp of colon; N18.30 Chronic kidney disease, stage 3 unspecified; R73.03 Prediabetes; Z53.20 Procedure and treatment not carried out because of patient's decision for unspecified reasons; Z79.82 Long term (current) use of aspirin; Z79.899 Other long term (current) drug therapy; Z85.46 Personal history of malignant neoplasm of prostate; Z87.891 Personal history of nicotine dependence; Z95.0 Presence of cardiac pacemaker; Z95.1 Presence of aortocoronary bypass graft; Z87.19 Personal history of other diseases of the digestive system
CPT/HCPCS: 36415; 43239; 45385; 71046; 80048; 80053; 82272; 82728; 83540; 83550; 83605; 84484; 85025; 85027; 85610; 85730; 86850; 86900; 86901; 86920; 88305; 96360; 99285

== ENCOUNTER 2022-03-01 20:30 | Inpatient (IN) | payer MEDICARE ==
[2022-03-01] MEDS ORDERED: SODIUM CHLORIDE 0.9% 1,000 ML IV STA (21:25)
--- NOTE | 2022-03-01 21:26 | ED ---
Weakness HPI - General Chief complaint: Syncope Stated complaint: Hypotension, near syncope Time Seen by Provider: 03/01/22 21:22 Source: patient, RN notes reviewed, old records reviewed Mode of arrival: EMS Limitations: no limitations - History of Present Illness Initial comments: This is an 87-year-old male to the emergency department for evaluation. Patient is safe for a week lightheaded and dizzy. Denies any significant abdominal pain no headache no chest pain or shortness of breath no abdominal pain. Per the just prior to arrival patient had a near syncopal event where he became unresponsive. Patient currently back at baseline and is presented by EMS MD Complaint: generalized weakness -: days(s) Location: generalized Severity: moderate Severity scale (1-10): 4 Consistency: constant Improves with: none Worsens with: none Context: recent surgery, history of similar Associated Symptoms: dark stools, loss of appetite, nausea/vomiting - Related Data Home Medications Medication Instructions Recorded Confirmed ALPRAZolam [Xanax] 0.25 mg PO BID PRN 02/16/22 02/16/22 Aspirin EC [Ecotrin Low Dose] 81 mg PO DAILY 02/16/22 02/16/22 Bumetanide [BUMEX] See Taper PO DAILY 02/16/22 02/16/22 Ferrous Sulfate [Iron] 325 mg PO DAILY 02/16/22 02/16/22 Losartan Potassium 100 mg PO DAILY 02/16/22 02/16/22 Melatonin 5 mg PO HS PRN 02/16/22 02/16/22 Metoprolol Succinate (ER) [Toprol 100 mg PO DAILY 02/16/22 02/16/22 XL] Multivitamins, Thera [Multivitamin 1 tab PO DAILY 02/16/22 02/16/22 (formulary)] Pantoprazole Sodium [Protonix] 40 mg PO DAILY 02/16/22 02/16/22 Pravastatin Sodium [Pravachol] 40 mg PO DAILY 02/16/22 02/16/22 amLODIPine [Norvasc] 5 mg PO DAILY 02/16/22 02/16/22 Allergies Allergy/AdvReac Type Severity Reaction Status Date / Time No Known Allergies Allergy Verified 02/16/22 16:37 Review of Systems ROS Statement: Those systems with pertinent positive or pertinent negative responses have been documented in the HPI. ROS Other: All systems not noted in ROS Statement are negative. Past Medical History Past Medical History: Cancer, Hyperlipidemia, Hypertension History of Any Multi-Drug Resistant Organisms: None Reported Past Surgical History: Coronary Bypass/CABG, Heart Catheterization With Stent, Hernia Repair, Orthopedic Surgery, Pacemaker, Prostate Surgery Past Anesthesia/Blood Transfusion Reactions: No Reported Reaction Date of Last Stent Placement:: unsure Type of Cardiac Device: Permanent Pacemaker Device Placement Date:: unsure Past Psychological History: No Psychological Hx Reported Smoking Status: Never smoker Past Alcohol Use History: Daily Past Drug Use History: None Reported General Exam Limitations: no limitations General appearance: alert, in no apparent distress Head exam: Present: atraumatic, normocephalic, normal inspection Eye exam: Present: normal appearance, PERRL, EOMI. Absent: scleral icterus, conjunctival injection, periorbital swelling ENT exam: Present: normal exam, mucous membranes moist Neck exam: Present: normal inspection. Absent: tenderness, meningismus, lymphadenopathy Respiratory exam: Present: normal lung sounds bilaterally. Absent: respiratory distress, wheezes, rales, rhonchi, stridor Cardiovascular Exam: Present: regular rate, normal rhythm, normal heart sounds. Absent: systolic murmur, diastolic murmur, rubs, gallop, clicks GI/Abdominal exam: Present: soft, normal bowel sounds. Absent: distended, tenderness, guarding, rebound, rigid Rectal exam: Present: heme (+) stool, black stool Extremities exam: Present: normal inspection, full ROM, normal capillary refill. Absent: tenderness, pedal edema, joint swelling, calf tenderness Back exam: Present: normal inspection Neurological exam: Present: alert, oriented X3, CN II-XII intact Psychiatric exam: Present: normal affect, normal mood Skin exam: Present: warm, dry, intact, normal color. Absent: rash Course Vital Signs 03/01/22 21:16 Temperature 98.2 F Pulse Rate 63 Respiratory 18 Rate Blood Pressure 115/70 O2 Sat by Pulse 97 Oximetry - Reevaluation(s) Reevaluation #1: 03/01/22 23:48 Medical record is reviewed Reevaluation #2: 03/01/22 23:48 Patient is no significant change in medical condition not lightheaded dizziness or weakness currently Reevaluation #3: 03/01/22 23:48 Patient is informed of results questions are answered Reevaluation #4: 03/01/22 23:48 Patient has no recurrent near syncopal events here in the ER 03/01/22 23:49 Patient will be transfused - Consultations Consultation #1: Spoke with Dr. Bautista who agrees to admit this patient Medical Decision Making - Medical Decision Making 87 male that presents today for evaluation. Patient coming in for GI bleed after or near syncopal event. Recent colonoscopy, patient will admit for transfusion secondary to symptomatic anemia secondary to GI bleed - Lab Data Result diagrams: 03/01/22 21:58 03/01/22 21:58 Lab Results 03/01/22 03/01/22 03/01/22 Range/Units 21:25 21:58 21:58 WBC 5.8 (3.8-10.6) k/uL RBC 1.90 L (4.30-5.90) m/uL Hgb 6.3 L* D (13.0-17.5) gm/dL Hct 20.4 L (39.0-53.0) % MCV 107.3 H (80.0-100.0) fL MCH 33.3 (25.0-35.0) pg MCHC 31.0 (31.0-37.0) g/dL RDW 16.9 H (11.5-15.5) % Plt Count 198 (150-450) k/uL MPV 8.0 Neutrophils % 69 % Lymphocytes % 21 % Monocytes % 5 % Eosinophils % 1 % Basophils % 0 % Neutrophils # 4.0 (1.3-7.7) k/uL Lymphocytes # 1.2 (1.0-4.8) k/uL Monocytes # 0.3 (0-1.0) k/uL Eosinophils # 0.1 (0-0.7) k/uL Basophils # 0.0 (0-0.2) k/uL Manual Slide Review Performed Polychromasia Present Hypochromasia Moderate Anisocytosis Slight Macrocytosis Marked A PT 11.1 (9.0-12.0) sec INR 1.0 (<1.2) APTT 23.1 (22.0-30.0) sec Sodium (137-145) mmol/L Potassium (3.5-5.1) mmol/L Chloride (98-107) mmol/L Carbon Dioxide (22-30) mmol/L Anion Gap mmol/L BUN (9-20) mg/dL Creatinine (0.66-1.25) mg/dL Est GFR (CKD-EPI)AfAm (>60 ml/min/1.73 sqM) Est GFR (CKD-EPI)NonAf (>60 ml/min/1.73 sqM) Glucose (74-99) mg/dL Plasma Lactic Acid Christo (0.7-2.0) mmol/L Calcium (8.4-10.2) mg/dL Phosphorus (2.5-4.5) mg/dL Magnesium (1.6-2.3) mg/dL Total Bilirubin (0.2-1.3) mg/dL AST (17-59) U/L ALT (4-49) U/L Alkaline Phosphatase (38-126) U/L Troponin I (0.000-0.034) ng/mL NT-Pro-B Natriuret Pep pg/mL Total Protein (6.3-8.2) g/dL Albumin (3.5-5.0) g/dL TSH (0.465-4.680) mIU/L Urine Color Yellow Urine Appearance Clear (Clear) Urine pH 7.0 (5.0-8.0) Ur Specific [place] 1.013 (1.001-1.035) Urine Protein Negative (Negative) Urine Glucose (UA) Negative (Negative) Urine Ketones Negative (Negative) Urine Blood Negative (Negative) Urine Nitrite Negative (Negative) Urine Bilirubin Negative (Negative) Urine Urobilinogen <2.0 (<2.0) mg/dL Ur Leukocyte Esterase Negative (Negative) 03/01/22 03/01/22 03/01/22 Range/Units 21:58 21:58 21:58 WBC (3.8-10.6) k/uL RBC (4.30-5.90) m/uL Hgb (13.0-17.5) gm/dL Hct (39.0-53.0) % MCV (80.0-100.0) fL MCH (25.0-35.0) pg MCHC (31.0-37.0) g/dL RDW (11.5-15.5) % Plt Count (150-450) k/uL MPV Neutrophils % % Lymphocytes % % Monocytes % % Eosinophils % % Basophils % % Neutrophils # (1.3-7.7) k/uL Lymphocytes # (1.0-4.8) k/uL Monocytes # (0-1.0) k/uL Eosinophils # (0-0.7) k/uL Basophils # (0-0.2) k/uL Manual Slide Review Polychromasia Hypochromasia Anisocytosis Macrocytosis PT (9.0-12.0) sec INR (<1.2) APTT (22.0-30.0) sec Sodium 135 L (137-145) mmol/L Potassium 4.0 (3.5-5.1) mmol/L Chloride 106 (98-107) mmol/L Carbon Dioxide 25 (22-30) mmol/L Anion Gap 4 mmol/L BUN 29 H (9-20) mg/dL Creatinine 1.73 H (0.66-1.25) mg/dL Est GFR (CKD-EPI)AfAm 40 (>60 ml/min/1.73 sqM) Est GFR (CKD-EPI)NonAf 35 (>60 ml/min/1.73 sqM) Glucose 87 (74-99) mg/dL Plasma Lactic Acid Christo 1.2 (0.7-2.0) mmol/L Calcium 7.8 L (8.4-10.2) mg/dL Phosphorus 3.2 (2.5-4.5) mg/dL Magnesium 2.2 (1.6-2.3) mg/dL Total Bilirubin 0.1 L (0.2-1.3) mg/dL AST 21 (17-59) U/L ALT 11 (4-49) U/L Alkaline Phosphatase 27 L (38-126) U/L Troponin I <0.012 (0.000-0.034) ng/mL NT-Pro-B Natriuret Pep pg/mL Total Protein 4.9 L (6.3-8.2) g/dL Albumin 3.0 L (3.5-5.0) g/dL TSH 3.300 (0.465-4.680) mIU/L Urine Color Urine Appearance (Clear) Urine pH (5.0-8.0) Ur Specific [place] (1.001-1.035) Urine Protein (Negative) Urine Glucose (UA) (Negative) Urine Ketones (Negative) Urine Blood (Negative) Urine Nitrite (Negative) Urine Bilirubin (Negative) Urine Urobilinogen (<2.0) mg/dL Ur Leukocyte Esterase (Negative) 03/01/22 Range/Units 21:58 WBC (3.8-10.6) k/uL RBC (4.30-5.90) m/uL Hgb (13.0-17.5) gm/dL Hct (39.0-53.0) % MCV (80.0-100.0) fL MCH (25.0-35.0) pg MCHC (31.0-37.0) g/dL RDW (11.5-15.5) % Plt Count (150-450) k/uL MPV Neutrophils % % Lymphocytes % % Monocytes % % Eosinophils % % Basophils % % Neutrophils # (1.3-7.7) k/uL Lymphocytes # (1.0-4.8) k/uL Monocytes # (0-1.0) k/uL Eosinophils # (0-0.7) k/uL Basophils # (0-0.2) k/uL Manual Slide Review Polychromasia Hypochromasia Anisocytosis Macrocytosis PT (9.0-12.0) sec INR (<1.2) APTT (22.0-30.0) sec Sodium (137-145) mmol/L Potassium (3.5-5.1) mmol/L Chloride (98-107) mmol/L Carbon Dioxide (22-30) mmol/L Anion Gap mmol/L BUN (9-20) mg/dL Creatinine (0.66-1.25) mg/dL Est GFR (CKD-EPI)AfAm (>60 ml/min/1.73 sqM) Est GFR (CKD-EPI)NonAf (>60 ml/min/1.73 sqM) Glucose (74-99) mg/dL Plasma Lactic Acid Christo (0.7-2.0) mmol/L Calcium (8.4-10.2) mg/dL Phosphorus (2.5-4.5) mg/dL Magnesium (1.6-2.3) mg/dL Total Bilirubin (0.2-1.3) mg/dL AST (17-59) U/L ALT (4-49) U/L Alkaline Phosphatase (38-126) U/L Troponin I (0.000-0.034) ng/mL NT-Pro-B Natriuret Pep 1150 pg/mL Total Protein (6.3-8.2) g/dL Albumin (3.5-5.0) g/dL TSH (0.465-4.680) mIU/L Urine Color Urine Appearance (Clear) Urine pH (5.0-8.0) Ur Specific [place] (1.001-1.035) Urine Protein (Negative) Urine Glucose (UA) (Negative) Urine Ketones (Negative) Urine Blood (Negative) Urine Nitrite (Negative) Urine Bilirubin (Negative) Urine Urobilinogen (<2.0) mg/dL Ur Leukocyte Esterase (Negative) Critical Care Time Critical Care Time: Yes Total Critical Care Time: 31 Disposition Clinical Impression: GI bleed, Anemia, LUPE (acute kidney injury), Blood loss anemia, Near syncope Disposition: ADMITTED IP TO THIS [facility] Condition: Serious Is patient prescribed a controlled substance at d/c from ED?: No Referrals: Kuldip Bautista MD [Primary Care Provider] - 1-2 days
[2022-03-01 22:20] LABS: Anisocytosis Slight; Basophils % (A) 0 %; Eosinophils # (A) 0.1 k/uL (0-0.7); Eosinophils % (A) 1 %; HCT 20.4 % (39.0-53.0); Hypochromasia Moderate; Lymphocytes # (A) 1.2 k/uL (1.0-4.8); Lymphocytes % (A) 21 %; MCH 33.3 pg (25.0-35.0); MCV 107.3 fL (80.0-100.0); Macrocytosis Marked; Monocytes # (A) 0.3 k/uL (0-1.0); Monocytes % (A) 5 %; Neutrophils % (A) 69 %; Platelet Count 198 k/uL (150-450); RDW 16.9 % (11.5-15.5); WBC 5.8 k/uL (3.8-10.6)
[2022-03-01 22:27] LABS: Partial Thromboplastin Time 23.1 sec (22.0-30.0); Prothrombin Time 11.1 sec (9.0-12.0)
[2022-03-01 22:30] LABS: Appearance,Urine Clear (Clear); Bilirubin,Urine Negative (Negative); Blood,Urine Negative (Negative); Color,Urine Yellow; Glucose,Urine (UA) Negative (Negative); Ketones,Urine Negative (Negative); Leukocyte Esterase,Urine Negative (Negative); Nitrite,Urine Negative (Negative); Protein,Urine Negative (Negative); Specific Gravity,Urine 1.013 (1.001-1.035); Urobilinogen,Urine <2.0 mg/dL (<2.0)
[2022-03-01 22:31] LABS: Calcium 7.8 mg/dL (8.4-10.2); Magnesium 2.2 mg/dL (1.6-2.3); Phosphorus 3.2 mg/dL (2.5-4.5); Total Bilirubin 0.1 mg/dL (0.2-1.3); Total Protein 4.9 g/dL (6.3-8.2)
[2022-03-01 22:43] LABS: HGB 6.3 gm/dL (13.0-17.5)
[2022-03-01 22:58] LABS: Polychromasia Present
[2022-03-01] MEDS ORDERED: NALOXONE 0.4 MG/ML 1 ML VIAL IV PRN (23:43)
[2022-03-01] MEDS ORDERED: ONDANSETRON 4 MG/2 ML VIAL IVP PRN (23:43)
[2022-03-02] MEDS ORDERED: ALPRAZolam 0.25 MG TAB PO PRN (00:57)
[2022-03-02] MEDS: PANTOPRAZOLE 40 MG/10 ML VIAL IV SCH ×3 (09:15→20:09)
[2022-03-02] MEDS: LOSARTAN 50 MG TAB PO SCH (09:17)
[2022-03-02] MEDS: amLODIPine 5 MG TAB PO SCH (09:17)
[2022-03-02] MEDS: METOPROLOL SUCCINATE (ER) 100 MG TAB.ER.24H PO SCH (09:28)
[2022-03-02] MEDS: SODIUM CHLORIDE 0.9% 1,000 ML IV SCH (09:30)
--- NOTE | 2022-03-02 11:51 | P.GSCN ---
History of Present Illness Consult date: 03/02/22 Reason for Consult: GI bleed History of present illness: 87-year-old male presents to the hospital because of near syncopal event. Patient's blood pressure apparently was low at home. Found to have a hemoglobin of 6.3 on arrival. Hemoglobin was 7.8 when he was discharged from the hospital 2 weeks ago. Patient was transfused 2 units. Recent EGD and colonoscopy 02/[address] Wilder showing erosive gastritis and small hiatal hernia along with a 1.5 cm cecal polyp. Patient had diverticulosis. Review of Systems The patient denies any acute changes in vision or hearing, no dysphagia or odynophagia, no chest pain or shortness of breath, no dysuria or hematuria, no headache, no runny nose, no rectal bleeding or melena, no unexplained weight loss Past Medical History Past Medical History: Cancer, Hyperlipidemia, Hypertension History of Any Multi-Drug Resistant Organisms: None Reported Past Surgical History: Coronary Bypass/CABG, Heart Catheterization With Stent, Hernia Repair, Orthopedic Surgery, Pacemaker, Prostate Surgery Past Anesthesia/Blood Transfusion Reactions: No Reported Reaction Date of Last Stent Placement:: unsure Type of Cardiac Device: Permanent Pacemaker Device Placement Date:: unsure Past Psychological History: No Psychological Hx Reported Smoking Status: Never smoker Past Alcohol Use History: Daily Past Drug Use History: None Reported Medications and Allergies Home Medications Medication Instructions Recorded Confirmed Type ALPRAZolam [Xanax] 0.25 mg PO BID PRN 02/16/22 03/02/22 History Aspirin EC [Ecotrin Low Dose] 81 mg PO DAILY 02/16/22 03/02/22 History Bumetanide [BUMEX] 0.5 mg PO TUTH 02/16/22 03/02/22 History Ferrous Sulfate [Iron] 325 mg PO DAILY 02/16/22 03/02/22 History Losartan Potassium 100 mg PO DAILY 02/16/22 03/02/22 History Melatonin 5 mg PO HS PRN 02/16/22 03/02/22 History Metoprolol Succinate (ER) [Toprol 100 mg PO DAILY 02/16/22 03/02/22 History XL] Multivitamins, Thera [Multivitamin 1 tab PO DAILY 02/16/22 03/02/22 History (formulary)] Pantoprazole Sodium [Protonix] 40 mg PO DAILY 02/16/22 03/02/22 History Pravastatin Sodium [Pravachol] 40 mg PO DAILY 02/16/22 03/02/22 History amLODIPine [Norvasc] 5 mg PO DAILY 02/16/22 03/02/22 History Azelastine HCl 2 sprays EA NOSTRIL BID 03/02/22 03/02/22 History Allergies Allergy/AdvReac Type Severity Reaction Status Date / Time No Known Allergies Allergy Verified 03/02/22 10:51 Surgical - Exam Vital Signs Temp Pulse Resp BP Pulse Ox 98.2 F 63 18 115/70 97 03/01/22 21:16 03/01/22 21:16 03/01/22 21:16 03/01/22 21:16 03/01/22 21:16 Physical exam: General: Well-developed, well-nourished HEENT: Normocephalic, sclerae nonicteric Abdomen: Nontender, nondistended Extremities: No edema Neuro: Alert and oriented Results - Labs 03/01/22 21:58 03/01/22 21:58 Abnormal Lab Results - Last 24 Hours (Table) 03/01/22 03/01/22 03/02/22 Range/Units 21:58 21:58 01:11 RBC 1.90 L (4.30-5.90) m/uL Hgb 6.3 L* D (13.0-17.5) gm/dL Hct 20.4 L (39.0-53.0) % MCV 107.3 H (80.0-100.0) fL RDW 16.9 H (11.5-15.5) % Macrocytosis Marked A Sodium 135 L (137-145) mmol/L BUN 29 H (9-20) mg/dL Creatinine 1.73 H (0.66-1.25) mg/dL Calcium 7.8 L (8.4-10.2) mg/dL Total Bilirubin 0.1 L (0.2-1.3) mg/dL Alkaline Phosphatase 27 L (38-126) U/L Total Protein 4.9 L (6.3-8.2) g/dL Albumin 3.0 L (3.5-5.0) g/dL Crossmatch See Detail Diabetes panel 03/01/22 Range/Units 21:58 Sodium 135 L (137-145) mmol/L Potassium 4.0 (3.5-5.1) mmol/L Chloride 106 (98-107) mmol/L Carbon Dioxide 25 (22-30) mmol/L BUN 29 H (9-20) mg/dL Creatinine 1.73 H (0.66-1.25) mg/dL Glucose 87 (74-99) mg/dL Calcium 7.8 L (8.4-10.2) mg/dL AST 21 (17-59) U/L ALT 11 (4-49) U/L Alkaline Phosphatase 27 L (38-126) U/L Total Protein 4.9 L (6.3-8.2) g/dL Albumin 3.0 L (3.5-5.0) g/dL Thyroid panel 03/01/22 Range/Units 21:58 TSH 3.300 (0.465-4.680) mIU/L Calcium panel 03/01/22 Range/Units 21:58 Calcium 7.8 L (8.4-10.2) mg/dL Phosphorus 3.2 (2.5-4.5) mg/dL Albumin 3.0 L (3.5-5.0) g/dL Pituitary panel 03/01/22 Range/Units 21:58 Sodium 135 L (137-145) mmol/L Potassium 4.0 (3.5-5.1) mmol/L Chloride 106 (98-107) mmol/L Carbon Dioxide 25 (22-30) mmol/L BUN 29 H (9-20) mg/dL Creatinine 1.73 H (0.66-1.25) mg/dL Glucose 87 (74-99) mg/dL Calcium 7.8 L (8.4-10.2) mg/dL TSH 3.300 (0.465-4.680) mIU/L Adrenal panel 03/01/22 Range/Units 21:58 Sodium 135 L (137-145) mmol/L Potassium 4.0 (3.5-5.1) mmol/L Chloride 106 (98-107) mmol/L Carbon Dioxide 25 (22-30) mmol/L BUN 29 H (9-20) mg/dL Creatinine 1.73 H (0.66-1.25) mg/dL Glucose 87 (74-99) mg/dL Calcium 7.8 L (8.4-10.2) mg/dL Total Bilirubin 0.1 L (0.2-1.3) mg/dL AST 21 (17-59) U/L ALT 11 (4-49) U/L Alkaline Phosphatase 27 L (38-126) U/L Total Protein 4.9 L (6.3-8.2) g/dL Albumin 3.0 L (3.5-5.0) g/dL Assessment and Plan Assessment: 87-year-old male admitted with anemia and near syncope. Patient with recent upper and lower endoscopy showing no definite source of bleeding. Tagged RBC scan is ordered for later today although given the patient's lack of bloody stools doubt that will be very helpful. May benefit from capsule endoscopy. Recommend GI consult.
--- NOTE | 2022-03-02 11:53 | P.HPIM ---
History of Present Illness H&P Date: 03/02/22 This is an 87-year-old male patient of Dr. Bautista with past medical history of hypertension, hyperlipidemia, coronary artery disease status post CABG, status post permanent pacemaker, history of prostate cancer, chronic kidney disease stage III, chronic anemia, borderline diabetes. Patient follows with infant teacher Dr. Villagran. Patient was recently admitted for a GI bleed 10 days ago. At that time he underwent a EGD that did not show an active bleed. Patient presented to the emergency room for evaluation. Patient stated that he felt lightheaded and dizzy. Is having significant discomfort that he could not pinpoint. And requested that his call an ambulance. He did take a nitro glycerin under his tongue. Per his he had an episode of near syncope event where he became unresponsive. At this time patient is found resting comfortably in bed in no acute distress. Hemoglobin 6.3 currently receiving a second unit packed red blood cells. Patient will be scheduled for a red cell tag for Thursday. Patient continues to show some confusion unable to answer all questions appropriately. Patient remains afebrile, heart rate 59, respirations 16, blood pressure 145/80, pulse ox 93% on room air. WC 5.8, hemoglobin 6.3 currently transfuse second unit, sodium 135, potassium 4.0, BUN 29, creatinine 1.73. REVIEW OF SYSTEMS Constitutional: No fever, no chills, no night sweats. No weight change. Reports weakness, Reports fatigue no lethargy. No daytime sleepiness. EENT: No headache. No blurred vision or double vision, no loss of vision. No loss of Hearing, no ringing in the ears, no dizziness. Reports nasal drainage or congestion. No epistaxis. No sore throat. Lungs: No shortness of breath, cough, no sputum production. No wheezing. Cardiovascular: No chest pain, no lower extremity edema. No palpitations. No paroxysmal nocturnal dyspnea. No orthopnea. No lightheadedness or dizziness. No syncopal episodes. Abdominal: No abdominal pain. No nausea, vomiting. No diarrhea. No constipation. Reports tarry stools. No loss of appetite. Genitourinary: No dysuria, increased frequency, urgency. No urinary retention. Musculoskeletal: No myalgias. No muscle weakness, no gait dysfunction, no frequent falls. No back pain. No neck pain. Integumentary: No wounds, no lesions. No rash or pruritus. No unusual bruising. No change in hair or nails. Neurologic: No aphasia. No facial droop. Reports chronic change in mentation. No head injury. No headache. No paralysis. No paresthesia. Psychiatric: No depression. No anxiety. No mood swings. Endocrine: No abnormal blood sugars. No weight change. No excessive sweating or thirst. No cold intolerance. SOCIAL HISTORY Patient smoked in the distant past briefly only. No alcohol use, no illicit drug use. He lives with his of 67 years. They winter in [place]. FAMILY HISTORY Father is from alcohol complications. Mother in her 70s patient does not recall her health history. Patient has 1 brother and 1 sister and is unable to recall their health history. Patient has 3 children one daughter from some type of cancer. 2 other children are without any major medical problems. PHYSICAL EXAMINATION Gen: This is an 87-year-old male. He is resting bed appears to be comfortable confused at times and in no acute distress. HEENT: Head is atraumatic, normocephalic. Pupils equal, round. Sclerae is anicteric. NECK: Supple. No JVD. No lymphadenopathy. No thyromegaly. LUNGS: Clear to auscultation. No wheezes or rhonchi. No intercostal retractions. HEART: Regular rate and rhythm. No murmur. ABDOMEN: Soft. Bowel sounds are present. No masses. No tenderness. EXTREMITIES: No pedal edema. No calf tenderness. NEUROLOGICAL: Patient is awake, alert and oriented x3. Cranial nerves 2 through 12 are grossly intact. ASSESSMENT AND PLAN 1. Acute GI bleed with tarry stools. Repeat hemoglobin, surgical consult, a red cell tag with nuclear medicine scheduled for tomorrow, Protonix 40 g IV push twice daily, 2. Acute blood loss anemia due to acute GI bleed. Transfuse 2 units of packed blood cells, continue to monitor hemoglobin 3. Hypertension, blood pressure currently soft. Resume Norvasc 5 mg daily, hold losartan, Bumex. 4. Hyperlipidemia. Continue pravastatin 40 mg daily. 5. Coronary artery disease with previous CABG. Continue Toprol-XL 100 mg daily, pravastatin. 6. History of prostate cancer, stable. 7. History of permanent pacemaker, stable. 8. Chronic kidney disease stage III with baseline creatinine of 1.5. 9. Chronic ALLERGIES. Patient started on Flonase and Claritin. 10. Borderline diabetes. Patient not currently on medications. 11. GI prophylaxis. Protonix. 12. DVT prophylaxis. SCDs and EEDN hose. Patient will be admitted to the hospital for a minimum of 2 night stay. DISCHARGE PLAN Most likely return home. PT and OT consults added. Impression and plan of care have been directed as dictated by the signing physician. Fatmata Wallis nurse practitioner acting as scribe for signing physician. Past Medical History Past Medical History: Cancer, Hyperlipidemia, Hypertension History of Any Multi-Drug Resistant Organisms: None Reported Past Surgical History: Coronary Bypass/CABG, Heart Catheterization With Stent, Hernia Repair, Orthopedic Surgery, Pacemaker, Prostate Surgery Past Anesthesia/Blood Transfusion Reactions: No Reported Reaction Date of Last Stent Placement:: unsure Type of Cardiac Device: Permanent Pacemaker Device Placement Date:: unsure Past Psychological History: No Psychological Hx Reported Smoking Status: Never smoker Past Alcohol Use History: Daily Past Drug Use History: None Reported Medications and Allergies Home Medications Medication Instructions Recorded Confirmed Type ALPRAZolam [Xanax] 0.25 mg PO BID PRN 02/16/22 03/02/22 History Aspirin EC [Ecotrin Low Dose] 81 mg PO DAILY 02/16/22 03/02/22 History Bumetanide [BUMEX] 0.5 mg PO TUTH 02/16/22 03/02/22 History Ferrous Sulfate [Iron] 325 mg PO DAILY 02/16/22 03/02/22 History Losartan Potassium 100 mg PO DAILY 02/16/22 03/02/22 History Melatonin 5 mg PO HS PRN 02/16/22 03/02/22 History Metoprolol Succinate (ER) [Toprol 100 mg PO DAILY 02/16/22 03/02/22 History XL] Multivitamins, Thera [Multivitamin 1 tab PO DAILY 02/16/22 03/02/22 History (formulary)] Pantoprazole Sodium [Protonix] 40 mg PO DAILY 02/16/22 03/02/22 History Pravastatin Sodium [Pravachol] 40 mg PO DAILY 02/16/22 03/02/22 History amLODIPine [Norvasc] 5 mg PO DAILY 02/16/22 03/02/22 History Azelastine HCl 2 sprays EA NOSTRIL BID 03/02/22 03/02/22 History Allergies Allergy/AdvReac Type Severity Reaction Status Date / Time No Known Allergies Allergy Verified 03/02/22 10:51 Physical Exam Vitals: Vital Signs Temp Pulse Pulse Resp BP BP Pulse Ox 03/02/22 10:54 97.9 F 59 L 145/80 93 L 03/02/22 09:53 97.8 F 60 16 145/72 94 L 03/02/22 09:23 97.9 F 65 18 131/67 94 L 03/02/22 09:13 97.9 F 62 18 144/61 95 03/02/22 07:43 97.7 F 63 18 146/73 97 03/02/22 07:05 97.7 F 61 146/73 97 03/02/22 05:11 98 F 68 132/62 96 03/02/22 04:41 97.9 F 71 123/61 97 03/02/22 04:31 98 F 74 16 117/54 95 03/02/22 03:17 98.5 F 16 123/76 97 03/02/22 02:12 98.5 F 71 18 119/69 95 03/01/22 21:16 98.2 F 63 18 115/70 97 Intake and Output 03/01/22 03/02/22 03/02/22 22:59 06:59 14:59 Intake Total 0 620 Balance 0 620 Intake: Blood Product 0 620 Rc As-1 Unit 0 310 [id number] Rc As-1 Unit 310 [id number] Other: Voiding Method Toilet Weight 72.575 kg 72.575 kg Results CBC & Chem 7: 03/01/22 21:58 03/01/22 21:58 Labs: Abnormal Lab Results - Last 24 Hours (Table) 03/01/22 03/01/22 03/02/22 Range/Units 21:58 21:58 01:11 RBC 1.90 L (4.30-5.90) m/uL Hgb 6.3 L* D (13.0-17.5) gm/dL Hct 20.4 L (39.0-53.0) % MCV 107.3 H (80.0-100.0) fL RDW 16.9 H (11.5-15.5) % Macrocytosis Marked A Sodium 135 L (137-145) mmol/L BUN 29 H (9-20) mg/dL Creatinine 1.73 H (0.66-1.25) mg/dL Calcium 7.8 L (8.4-10.2) mg/dL Total Bilirubin 0.1 L (0.2-1.3) mg/dL Alkaline Phosphatase 27 L (38-126) U/L Total Protein 4.9 L (6.3-8.2) g/dL Albumin 3.0 L (3.5-5.0) g/dL Crossmatch See Detail
[2022-03-02 12:39] LABS: Anisocytosis Slight; Basophils % (A) 0 %; Eosinophils # (A) 0.1 k/uL (0-0.7); Eosinophils % (A) 1 %; HCT 33.2 % (39.0-53.0); Hypochromasia Moderate; Lymphocytes # (A) 1.1 k/uL (1.0-4.8); Lymphocytes % (A) 15 %; MCH 32.9 pg (25.0-35.0); MCHC 31.9 g/dL (31.0-37.0); MCV 103.3 fL (80.0-100.0); Macrocytosis Moderate; Mean Platelet Volume 7.8; Monocytes # (A) 0.3 k/uL (0-1.0); Monocytes % (A) 5 %; Neutrophils # (A) 5.6 k/uL (1.3-7.7); Neutrophils % (A) 77 %; Platelet Count 220 k/uL (150-450); Poikilocytosis Slight; RBC 3.22 m/uL (4.30-5.90); RDW 18.5 % (11.5-15.5); WBC 7.3 k/uL (3.8-10.6)
[2022-03-02 12:41] LABS: HGB 10.6 gm/dL (13.0-17.5)
--- NOTE | 2022-03-02 15:51 | NM ---
EXAMINATION TYPE: NM GI bleeding DATE OF EXAM: 03/02/2022 HISTORY: GI bleeding. COMPARISON: NONE Following administration of 3 ml PYP 20.5 mCi Tc 99m Sodium Pertechnete. Immediate images post inject ion. FINDINGS: Images obtained up to one hour show normal tracer vascular distribution. No evidence of any extravasa tion to suggest active GI bleeding. IMPRESSION: No evidence of active GI bleeding.
[2022-03-03] MEDS: SODIUM CHLORIDE 0.9% 1,000 ML IV SCH (02:37)
[2022-03-03] MEDS: amLODIPine 5 MG TAB PO SCH (08:21)
[2022-03-03] MEDS: LOSARTAN 50 MG TAB PO SCH (08:21)
[2022-03-03] MEDS: PANTOPRAZOLE 40 MG/10 ML VIAL IV SCH ×2 (08:22→20:34)
[2022-03-03] MEDS: METOPROLOL SUCCINATE (ER) 100 MG TAB.ER.24H PO SCH (08:22)
[2022-03-03] MEDS ORDERED: SODIUM CHLORIDE 0.9% 500 ML 500 ML IV ONE (08:36)
[2022-03-03 08:48] LABS: Basophils # (A) 0.02 X 10*3/uL (0.00-0.10); Basophils % (A) 0.3 %; Eosinophils # (A) 0.13 X 10*3/uL (0.04-0.35); Eosinophils % (A) 1.9 %; HCT 30.2 % (39.6-50.0); HGB 9.4 g/dL (13.0-17.0); Immature Grans, Automated 0.4 %; Lymphocytes # (A) 1.35 X 10*3/uL (0.90-5.00); Lymphocytes % (A) 19.5 %; MCH 31.4 pg (27.0-32.0); MCHC 31.1 g/dL (32.0-37.0); Mean Platelet Volume 10.2 fL (9.5-12.2); Monocytes # (A) 0.52 X 10*3/uL (0.20-1.00); Monocytes % (A) 7.5 %; NRBC Per 100 WBC 0 /100 WBCS (0.0-0.0); Neutrophils # (A) 4.86 X 10*3/uL (1.80-7.70); Neutrophils % (A) 70.4 %; Platelet Count 182 X 10*3/uL (140-440); RBC 2.99 X 10*6/uL (4.40-5.60); RDW 19.9 % (11.5-14.5); WBC 6.91 X 10*3/uL (4.50-10.00)
[2022-03-03 08:55] LABS: Albumin 3.8 g/dL (3.8-4.9); Albumin/Globulin Ratio 2.53 (1.60-3.17); Anion Gap 13.1 mmol/L (10.00-18.00); BUN/Creat Ratio 13.5 Ratio (12.00-20.00); Blood Urea Nitrogen 18.9 mg/dL (9.0-27.0); Calcium 8.7 mg/dL (8.7-10.3); Carbon Dioxide 22.9 mmol/L (20.0-27.5); Globulin 1.5 g/dL (1.6-3.3); Non-African American GFR(CKD) 44.9 (60.0-200.0); Potassium 4.3 mmol/L (3.5-5.5); Total Bilirubin 1.1 mg/dL (0.30-1.20); Total Protein 5.3 g/dL (6.2-8.2)
--- NOTE | 2022-03-03 11:58 | P.PN ---
Subjective Progress Note Date: 03/03/22 H&P Date: 03/02/22 This is an 87-year-old male patient of Dr. Bautista with past medical history of hypertension, hyperlipidemia, coronary artery disease status post CABG, status post permanent pacemaker, history of prostate cancer, chronic kidney disease stage III, chronic anemia, borderline diabetes. Patient follows with battery mechanic Dr. Villagran. Patient was recently admitted for a GI bleed 10 days ago. At that time he underwent a EGD that did not show an active bleed. Patient presented to the emergency room for evaluation. Patient stated that he felt lightheaded and dizzy. Is having significant discomfort that he could not pinpoint. And requested that his call an ambulance. He did take a nitro glycerin under his tongue. Per his he had an episode of near syncope event where he became unresponsive. At this time patient is found resting comfortably in bed in no acute distress. Hemoglobin 6.3 currently receiving a second unit packed red blood cells. Patient will be scheduled for a red cell tag for Thursday. Patient continues to show some confusion unable to answer all questions appropriately. Patient remains afebrile, heart rate 59, respirations 16, blood pressure 145/80, pulse ox 93% on room air. WC 5.8, hemoglobin 6.3 currently transfuse second unit, sodium 135, potassium 4.0, BUN 29, creatinine 1.73. 03/03: Patient remains mildly confused. He was nothing by mouth this morning for nuclear medicine red cell tag study which showed no evidence of active GI bleeding. We will add in a consult for GI. Patient is being followed by Dr. Fisher as well with no plan for any intervention at this time. Repeat hemoglobin is 9.4. Consult for PT and OT added. REVIEW OF SYSTEMS Constitutional: No fever, no chills, no night sweats. No weight change. Reports weakness, Reports fatigue no lethargy. No daytime sleepiness. EENT: No headache. No blurred vision or double vision, no loss of vision. No loss of Hearing, no ringing in the ears, no dizziness. Reports nasal drainage or congestion. No epistaxis. No sore throat. Lungs: No shortness of breath, cough, no sputum production. No wheezing. Cardiovascular: No chest pain, no lower extremity edema. No palpitations. No paroxysmal nocturnal dyspnea. No orthopnea. No lightheadedness or dizziness. No syncopal episodes. Abdominal: No abdominal pain. No nausea, vomiting. No diarrhea. No constipation. Reports tarry stools. No loss of appetite. Genitourinary: No dysuria, increased frequency, urgency. No urinary retention. Musculoskeletal: No myalgias. No muscle weakness, no gait dysfunction, no frequent falls. No back pain. No neck pain. Integumentary: No wounds, no lesions. No rash or pruritus. No unusual bruising. No change in hair or nails. Neurologic: No aphasia. No facial droop. Reports chronic change in mentation. No head injury. No headache. No paralysis. No paresthesia. Psychiatric: No depression. No anxiety. No mood swings. Endocrine: No abnormal blood sugars. No weight change. No excessive sweating or thirst. No cold intolerance. PHYSICAL EXAMINATION Gen: This is an 87-year-old male. He is resting bed appears to be comfortable confused at times and in no acute distress. HEENT: Head is atraumatic, normocephalic. Pupils equal, round. Sclerae is anicteric. NECK: Supple. No JVD. No lymphadenopathy. No thyromegaly. LUNGS: Clear to auscultation. No wheezes or rhonchi. No intercostal retractions. HEART: Regular rate and rhythm. No murmur. ABDOMEN: Soft. Bowel sounds are present. No masses. No tenderness. EXTREMITIES: No pedal edema. No calf tenderness. NEUROLOGICAL: Patient is awake, alert and oriented x3. Cranial nerves 2 through 12 are grossly intact. ASSESSMENT AND PLAN 1. Acute GI bleed with tarry stools. Repeat hemoglobin, surgical consult appreciated. Red cell tagged nuclear medicine study was negative for bleeding. Consult added for GI services, continue Protonix 40 g IV push twice daily, 2. Acute blood loss anemia due to acute GI bleed. Transfuse 2 units of packed blood cells, continue to monitor hemoglobin 3. Hypertension, blood pressure currently soft. Resume Norvasc 5 mg daily, hold losartan, Bumex. 4. Hyperlipidemia. Continue pravastatin 40 mg daily. 5. Coronary artery disease with previous CABG. Continue Toprol-XL 100 mg daily, pravastatin. 6. History of prostate cancer, stable. 7. History of permanent pacemaker, stable. 8. Chronic kidney disease stage III with baseline creatinine of 1.5. 9. Chronic ALLERGIES. Patient started on Flonase and Claritin. 10. Borderline diabetes. Patient not currently on medications. 11. GI prophylaxis. Protonix. 12. DVT prophylaxis. SCDs and EDEN hose. DISCHARGE PLAN Most likely return home. PT and OT consults added. Impression and plan of care have been directed as dictated by the signing p elina. Mary Leiva nurse practitioner acting as scribe for signing physician. Objective - Vital Signs Vital signs: Vital Signs Temp 97.9 F 03/03/22 08:00 Pulse 59 L 03/03/22 08:00 Resp 16 03/03/22 08:00 BP 144/62 03/03/22 08:00 Pulse Ox 95 03/03/22 08:00 FiO2 Intake & Output 03/02/22 03/03/22 03/03/22 18:59 06:59 18:59 Intake Total 620 Balance 620 Intake: Blood Product 620 Rc As-1 Unit 310 [id number] Rc As-1 Unit 310 [id number] Other: Voiding Method Toilet Toilet # Voids 3 1 # Bowel Movements 1 - Labs CBC & Chem 7: 03/03/22 04:22 03/03/22 04:22 Labs: Abnormal Lab Results - Last 24 Hours (Table) 03/02/22 03/02/22 Range/Units 01:11 12:08 RBC 3.22 L (4.30-5.90) m/uL Hgb 10.6 L D (13.0-17.5) gm/dL Hct 33.2 L (39.0-53.0) % MCV 103.3 H (80.0-100.0) fL RDW 18.5 H (11.5-15.5) % Crossmatch See Detail
--- NOTE | 2022-03-03 13:21 | P.CONS ---
History of Present Illness - Reason for Consult Consult date: 03/03/22 GI bleed Requesting physician: Kuldip Bautista - Chief Complaint Syncope - History of Present Illness There is a pleasant 87-year-old male who presented to the emergency department with complaints of syncopal episode and hypotension. Patient was recently admitted to the hospital for GI bleed underwent EGD and colonoscopy on 02/18/2022. EGD showed mild tortuosity of the upper esophageal sphincter, antral erosive gastritis and a small hiatal hernia. Colonoscopy revealed d iluted blood right colon but no obvious source of bleeding identified. A 1.5 cm cecal polyp status post polypectomy with scattered left-sided diverticulosis. During that hospitalization bleeding had improved and patient was sent home with suspected diverticular bleed. Patient is pleasantly confused, this is reported his baseline. He is is unsure why he was admitted and what hospital he is at. He denies any GI bleeding. However nursing is reporting black stool noted. Gen. surgery was initially consulted yesterday and ordered a tagged RBC with no evidence of active GI bleed. Admitting hemoglobin 6.3 he has received 2 units PRBC transfusion. INR 1.0. Patient is not on any anticoagulation. Review of Systems REVIEW OF SYSTEMS: CARDIOPULMONARY: No chest pain or shortness of breath. Gastrointestinal: Eyes epigastric or abdominal pain. No nausea or vomiting. No hematemesis, coffee-ground emesis. Patient denies any rectal bleeding or melena. GENITOURINARY: No dysuria or hematuria. MUSCULOSKELETAL: Reports normal range of motion., Joint pain. SKIN: No rashes. No jaundice. ENDOCRINE: No chills, fevers. No excessive weight gain or loss. No polydipsia or polyuria. PSYCHIATRIC: Unremarkable. NEUROLOGY: No change in mental status. Dizziness, syncope. ENT: Vision unremarkable. CONSTITUTIONAL: No recent weight loss. No fever, chills, night sweats. Past Medical History Past Medical History: Cancer, Hyperlipidemia, Hypertension History of Any Multi-Drug Resistant Organisms: None Reported Past Surgical History: Coronary Bypass/CABG, Heart Catheterization With Stent, Hernia Repair, Orthopedic Surgery, Pacemaker, Prostate Surgery Past Anesthesia/Blood Transfusion Reactions: No Reported Reaction Date of Last Stent Placement:: unsure Type of Cardiac Device: Permanent Pacemaker Device Placement Date:: unsure Past Psychological History: No Psychological Hx Reported Smoking Status: Never smoker Past Alcohol Use History: Daily Past Drug Use History: None Reported Medications and Allergies Home Medications Medication Instructions Recorded Confirmed Type ALPRAZolam [Xanax] 0.25 mg PO BID PRN 02/16/22 03/02/22 History Aspirin EC [Ecotrin Low Dose] 81 mg PO DAILY 02/16/22 03/02/22 History Bumetanide [BUMEX] 0.5 mg PO TUTH 02/16/22 03/02/22 History Ferrous Sulfate [Iron] 325 mg PO DAILY 02/16/22 03/02/22 History Losartan Potassium 100 mg PO DAILY 02/16/22 03/02/22 History Melatonin 5 mg PO HS PRN 02/16/22 03/02/22 History Metoprolol Succinate (ER) [Toprol 100 mg PO DAILY 02/16/22 03/02/22 History XL] Multivitamins, Thera [Multivitamin 1 tab PO DAILY 02/16/22 03/02/22 History (formulary)] Pantoprazole Sodium [Protonix] 40 mg PO DAILY 02/16/22 03/02/22 History Pravastatin Sodium [Pravachol] 40 mg PO DAILY 02/16/22 03/02/22 History amLODIPine [Norvasc] 5 mg PO DAILY 02/16/22 03/02/22 History Azelastine HCl 2 sprays EA NOSTRIL BID 03/02/22 03/02/22 History Allergies Allergy/AdvReac Type Severity Reaction Status Date / Time No Known Allergies Allergy Verified 03/02/22 10:51 Physical Exam Vitals: Vital Signs Temp Pulse Pulse Resp BP BP BP 03/03/22 09:15 16 03/03/22 08:37 95/52 03/03/22 08:00 97.9 F 59 L 16 144/62 03/03/22 02:00 98.7 F 59 L 16 138/69 03/02/22 20:00 98.3 F 48 L 20 131/60 03/02/22 14:00 98.3 F 77 18 113/69 03/02/22 10:54 97.9 F 59 L 145/80 Pulse Ox 03/03/22 09:15 03/03/22 08:37 03/03/22 08:00 95 03/03/22 02:00 95 03/02/22 20:00 96 03/02/22 14:00 95 03/02/22 10:54 93 L Intake and Output 03/02/22 03/03/22 03/03/22 22:59 06:59 14:59 Other: Voiding Method Toilet Toilet # Voids 1 1 # Bowel Movements 0 1 General appearance: The patient is alert, oriented, appears in no acute distress. HET: Head is normocephalic and atraumatic. Conjunctiva pink. Sclera anicteric. Neck: Supple without lymphadenopathy. Trachea midline. Heart: S1 S2. Regular rate and rhythm. Lungs: Clear to auscultation. Abdomen: Soft, nontender, nondistended with bowel sounds. No guarding or rigidity. Skin: No rashes. No jaundice. Extremities: Normal skin color and turgor. No pedal edema. Neurological: No focal deficits. Alert and oriented x1. Results CBC & Chem 7: 03/03/22 04:22 03/03/22 04:22 Labs: Abnormal Lab Results - Last 24 Hours (Table) 03/02/22 03/02/22 03/03/22 Range/Units 01:11 12:08 04:22 RBC 3.22 L 2.99 L (4.30-5.90) m/uL Hgb 10.6 L D 9.4 L (13.0-17.5) gm/dL Hct 33.2 L 30.2 L (39.0-53.0) % MCV 103.3 H 101.0 H (80.0-100.0) fL MCHC 31.1 L (32.0-37.0) g/dL RDW 18.5 H 19.9 H (11.5-15.5) % Est GFR (CKD-EPI)AfAm (60.0-200.0) Est GFR (CKD-EPI)NonAf (60.0-200.0) Alkaline Phosphatase (41-126) U/L Total Protein (6.2-8.2) g/dL Globulin (1.6-3.3) g/dL Crossmatch See Detail 03/03/22 Range/Units 04:22 RBC (4.30-5.90) m/uL Hgb (13.0-17.5) gm/dL Hct (39.0-53.0) % MCV (80.0-100.0) fL MCHC (32.0-37.0) g/dL RDW (11.5-15.5) % Est GFR (CKD-EPI)AfAm 52.0 L (60.0-200.0) Est GFR (CKD-EPI)NonAf 44.9 L (60.0-200.0) Alkaline Phosphatase 38 L (41-126) U/L Total Protein 5.3 L (6.2-8.2) g/dL Globulin 1.5 L (1.6-3.3) g/dL Crossmatch Comments: Tagged RBC nuclear med GI bleed study: No evidence of active GI bleeding Assessment and Plan (1) Anemia Narrative/Plan: 87-year-old male who was recently hospitalized with acute blood loss anemia who underwent EGD and colonoscopy on 02/18/[address] Dotson. Colonoscopy found to diluted blood throughout right-sided colon is with a suspected diverticular bleed. Patient was readmitted for syncope. He was noted to have a hemoglobin of 6.3 and given 2 units of PRBC transfusion. He is on oral iron. Reported dark stool. Patient had a bowel movement that is dark however no melena. He was seen by general surgery who ordered a tagged RBC with no evidence of bleeding. Will proceed with small bowel video capsule endoscopy. Current Visit: Yes Status: Acute Code(s): D64.9 - ANEMIA, UNSPECIFIED SNOMED Code(s): 518733935 (2) Melena Current Visit: No Status: Acute Code(s): K92.1 - MELENA SNOMED Code(s): 6340851 (3) Near syncope Current Visit: Yes Status: Acute Code(s): R55 - SYNCOPE AND COLLAPSE SNOMED Code(s): 202720601 (4) Diverticulosis Current Visit: Yes Status: Acute Code(s): K57.90 - DVRTCLOS OF INTEST, PART UNSP, W/O PERF OR ABSCESS W/O BLEED SNOMED Code(s): 125978713 Plan: 1. Continue symptomatic supportive care 2. Clear liquid diet 3. Nothing by mouth after midnight 4. Magnesium citrate this evening 5. Daily CBC, transfuse for hemoglobin less than 7 6. Plan for a small bowel video capsule endoscopy tomorrow, please obtain consent. Thank you for this consultation, we will continue to follow. Dr. Bubba Dotson I agree with the dictator's note, documented as a scribe by Moriah Day.
--- NOTE | 2022-03-03 14:41 | P.PN ---
Subjective Progress Note Date: 03/03/22 CHIEF COMPLAINT: GI bleed HISTORY OF PRESENT ILLNESS: Patient had another black stool yesterday. Hemoglo bin on admission was 6.3. Hemoglobin 10.6 yesterday down to 9.4 today. Patient's seen by GI service they have him scheduled for capsule endoscopy tomorrow. His tach RBC scan was negative. Patient had EGD and colonoscopy on 02/18/[address] Wilder. Resulted shown erosive gastritis, hiatal hernia, cecal polyp and diverticulosis. PHYSICAL EXAM: VITAL SIGNS: Reviewed. GENERAL: Well-developed in no acute distress. HEENT: No sclera icterus. Extraocular movements grossly intact. Moist buccal mucosa. Head is atraumatic, normocephalic. ABDOMEN: Soft. Nondistended. Nontender. NEUROLOGIC: Confused ASSESSMENT: 1. Acute GI bleed 2. Acute blood loss anemia 3. Near-syncopal episode PLAN: -Capsule endoscopy scheduled per GI service -Continue monitor hemoglobin -Continue supportive care -Continue clear liquid diet Physician Tenant Coordinator note has been reviewed by physician. Signing provider agrees with the documented findings, assessment, and plan of care. Objective - Vital Signs Vital signs: Vital Signs Temp 97.9 F 03/03/22 08:00 Pulse 59 L 03/03/22 08:00 Resp 16 03/03/22 09:15 BP 95/52 03/03/22 08:37 Pulse Ox 95 03/03/22 08:00 FiO2 Intake & Output 03/02/22 03/03/22 03/03/22 18:59 06:59 18:59 Intake Total 620 Balance 620 Intake: Blood Product 620 As-1 Unit 310 [id number] Rc As-1 Unit 310 [id number] Other: Voiding Method Toilet Toilet Toilet # Voids 3 1 # Bowel Movements 1 - Labs CBC & Chem 7: 03/03/22 04:22 03/03/22 04:22 Labs: Abnormal Lab Results - Last 24 Hours (Table) 03/03/22 03/03/22 Range/Units 04:22 04:22 RBC 2.99 L (4.40-5.60) X 10*6/uL Hgb 9.4 L (13.0-17.0) g/dL Hct 30.2 L (39.6-50.0) % MCV 101.0 H (80.0-97.0) fL MCHC 31.1 L (32.0-37.0) g/dL RDW 19.9 H (11.5-14.5) % Est GFR (CKD-EPI)AfAm 52.0 L (60.0-200.0) Est GFR (CKD-EPI)NonAf 44.9 L (60.0-200.0) Alkaline Phosphatase 38 L (41-126) U/L Total Protein 5.3 L (6.2-8.2) g/dL Globulin 1.5 L (1.6-3.3) g/dL
[2022-03-03] MEDS ORDERED: MAGNESIUM CITRATE 296 ML BOTTLE PO ONE (19:00)
[2022-03-04] MEDS: SODIUM CHLORIDE 0.9% 1,000 ML IV SCH (01:16)
[2022-03-04] MEDS ORDERED: SIMETHICONE 40 MG/0.6 ML DROPS 2,000 MG/30 ML BOTTLE PO ONE (07:18)
[2022-03-04 07:53] VITALS: RESP 16
[2022-03-04 09:14] LABS: Anisocytosis Slight; HCT 30.5 % (39.0-53.0); HGB 9.4 gm/dL (13.0-17.5); Hypochromasia Moderate; MCH 32.1 pg (25.0-35.0); MCHC 30.9 g/dL (31.0-37.0); MCV 103.9 fL (80.0-100.0); Macrocytosis Moderate; Mean Platelet Volume 8.1; Platelet Count 192 k/uL (150-450); Poikilocytosis Slight; RBC 2.94 m/uL (4.30-5.90); WBC 6.6 k/uL (3.8-10.6)
[2022-03-04 09:40] LABS: African American GFR (CKD) 48 (>60 ml/min/1.73 sqM); Anion Gap 5 mmol/L; Blood Urea Nitrogen 18 mg/dL (9-20); Calcium 8.5 mg/dL (8.4-10.2); Carbon Dioxide 24 mmol/L (22-30); Chloride 109 mmol/L (98-107); Glucose 102 mg/dL (74-99); Non-African American GFR(CKD) 41 (>60 ml/min/1.73 sqM); Potassium 4.1 mmol/L (3.5-5.1); Sodium 138 mmol/L (137-145)
[2022-03-04] MEDS: PANTOPRAZOLE 40 MG/10 ML VIAL IV SCH ×2 (11:33→20:19)
[2022-03-04] MEDS: LOSARTAN 50 MG TAB PO SCH (11:34)
[2022-03-04] MEDS: METOPROLOL SUCCINATE (ER) 100 MG TAB.ER.24H PO SCH (11:34)
[2022-03-04] MEDS: amLODIPine 5 MG TAB PO SCH (11:34)
--- NOTE | 2022-03-04 11:52 | P.PN ---
Subjective Progress Note Date: 03/04/22 H&P Date: 03/02/22 This is an 87-year-old male patient of Dr. Bautista with past medical history of hypertension, hyperlipidemia, coronary artery disease status post CABG, status post permanent pacemaker, history of prostate cancer, chronic kidney disease stage III, chronic anemia, borderline diabetes. Patient follows with reel slitter Dr. Villagran. Patient was recently admitted for a GI bleed 10 days ago. At that time he underwent a EGD that did not show an active bleed. Patient presented to the emergency room for evaluation. Patient stated that he felt lightheaded and dizzy. Is having significant discomfort that he could not pinpoint. And requested that his call an ambulance. He did take a nitro glycerin under his tongue. Per his he had an episode of near syncope event where he became unresponsive. At this time patient is found resting comfortably in bed in no acute distress. Hemoglobin 6.3 currently receiving a second unit packed red blood cells. Patient will be scheduled for a red cell tag for Thursday. Patient continues to show some confusion unable to answer all questions appropriately. Patient remains afebrile, heart rate 59, respirations 16, blood pressure 145/80, pulse ox 93% on room air. WC 5.8, hemoglobin 6.3 currently transfuse second unit, sodium 135, potassium 4.0, BUN 29, creatinine 1.73. 03/03: Patient remains mildly confused. He was nothing by mouth this morning for nuclear medicine red cell tag study which showed no evidence of active GI bleeding. We will add in a consult for GI. Patient is being followed by Dr. Fisher as well with no plan for any intervention at this time. Repeat hemoglobin is 9.4. Consult for PT and OT added. 03/04: Patient is undergoing capsule endoscopy this morning. Patient did have quite a bit of blood this morning rectally. He denies any abdominal pain, he complains of being hungry. Patient's is at the bedside and questions answered. Hemoglobin is 9.4. BUN 18 and creatinine 1.51. REVIEW OF SYSTEMS Constitutional: No fever, no chills, no night sweats. No weight change. Reports weakness, Reports fatigue no lethargy. No daytime sleepiness. EENT: No headache. No blurred vision or double vision, no loss of vision. No loss of Hearing, no ringing in the ears, no dizziness. Reports nasal drainage or congestion. No epistaxis. No sore throat. Lungs: No shortness of breath, cough, no sputum production. No wheezing. Cardiovascular: No chest pain, no lower extremity edema. No palpitations. No paroxysmal nocturnal dyspnea. No orthopnea. No lightheadedness or dizziness. No syncopal episodes. Abdominal: No abdominal pain. No nausea, vomiting. No diarrhea. No constipation. Reports tarry stools. No loss of appetite. Genitourinary: No dysuria, increased frequency, urgency. No urinary retention. Musculoskeletal: No myalgias. No muscle weakness, no gait dysfunction, no frequent falls. No back pain. No neck pain. Integumentary: No wounds, no lesions. No rash or pruritus. No unusual bruisi ng. No change in hair or nails. Neurologic: No aphasia. No facial droop. Reports chronic change in mentation. No head injury. No headache. No paralysis. No paresthesia. Psychiatric: No depression. No anxiety. No mood swings. Endocrine: No abnormal blood sugars. No weight change. No excessive sweating or thirst. No cold intolerance. PHYSICAL EXAMINATION Gen: This is an 87-year-old male. He is resting bed appears to be comfortable confused at times and in no acute distress. Patient's is at bedside. HEENT: Head is atraumatic, normocephalic. Pupils equal, round. Sclerae is anicteric. NECK: Supple. No JVD. No lymphadenopathy. No thyromegaly. LUNGS: Clear to auscultation. No wheezes or rhonchi. No intercostal retractions. HEART: Regular rate and rhythm. No murmur. ABDOMEN: Soft. Bowel sounds are present. No masses. No tenderness. EXTREMITIES: No pedal edema. No calf tenderness. NEUROLOGICAL: Patient is awake, alert and oriented x3. Cranial nerves 2 through 12 are grossly intact. ASSESSMENT AND PLAN 1. Acute GI bleed with tarry stools. Repeat hemoglobin, surgical consult appreciated, GI consult appreciated. Red cell tagged nuclear medicine study was negative for bleeding. Capsule endoscopy today, continue Protonix 40 g IV push twice daily, 2. Acute blood loss anemia due to acute GI bleed. Transfuse 2 units of packed blood cells, continue to monitor hemoglobin 3. Hypertension, blood pressure currently soft. Resume Norvasc 5 mg daily, hold losartan, Bumex. 4. Hyperlipidemia. Continue pravastatin 40 mg daily. 5. Coronary artery disease with previous CABG. Continue Toprol-XL 100 mg d aily, pravastatin. 6. History of prostate cancer, stable. 7. History of permanent pacemaker, stable. 8. Chronic kidney disease stage III with baseline creatinine of 1.5. 9. Chronic ALLERGIES. Patient started on Flonase and Claritin. 10. Borderline diabetes. Patient not currently on medications. 11. GI prophylaxis. Protonix. 12. DVT prophylaxis. SCDs and EDEN hose. DISCHARGE PLAN Home possibly on Thursday Impression and plan of care have been directed as dictated by the signing physician. Mary Leiva nurse practitioner acting as scribe for signing physician. Objective - Vital Signs Vital signs: Vital Signs Temp 98.3 F 03/04/22 07:52 Pulse 60 03/04/22 07:52 Resp 16 03/04/22 07:52 BP 111/61 03/04/22 07:52 Pulse Ox 100 03/04/22 07:52 FiO2 Intake & Output 03/03/22 03/04/22 03/04/22 18:59 06:59 18:59 Intake Total 180 Balance 180 Intake: Oral 180 Other: Voiding Method Toilet # Voids 4 2 # Bowel Movements 2 8 - Labs CBC & Chem 7: 03/04/22 08:40 03/04/22 08:40 Labs: Abnormal Lab Results - Last 24 Hours (Table) 03/03/22 03/03/22 Range/Units 04:22 04:22 RBC 2.99 L (4.40-5.60) X 10*6/uL Hgb 9.4 L (13.0-17.0) g/dL Hct 30.2 L (39.6-50.0) % MCV 101.0 H (80.0-97.0) fL MCHC 31.1 L (32.0-37.0) g/dL RDW 19.9 H (11.5-14.5) % Est GFR (CKD-EPI)AfAm 52.0 L (60.0-200.0) Est GFR (CKD-EPI)NonAf 44.9 L (60.0-200.0) Alkaline Phosphatase 38 L (41-126) U/L Total Protein 5.3 L (6.2-8.2) g/dL Globulin 1.5 L (1.6-3.3) g/dL
--- NOTE | 2022-03-04 13:01 | P.PN ---
Subjective Progress Note Date: 03/04/22 CHIEF COMPLAINT: GI bleed HISTORY OF PRESENT ILLNESS: Patient had a bloody bowel movement this morning. He is undergoing capsule endoscopy today. Followed by GI service. He denies any abdominal pain. Patient had EGD and colonoscopy on 02/18/[address] Dotson. Resulted shown erosive gastritis, hiatal hernia, cecal polyp and diverticulosis. Afebrile. Hemoglobin same and 9.4 WBC 6.6 Patient seen and examined with Dr. ng PHYSICAL EXAM: VITAL SIGNS: Reviewed. GENERAL: Well-developed in no acute distress. HEENT: No sclera icterus. Extraocular movements grossly intact. Moist buccal mucosa. Head is atraumatic, normocephalic. ABDOMEN: Soft. Nondistended. Nontender. NEUROLOGIC: Confused ASSESSMENT: 1. Acute GI bleed 2. Acute blood loss anemia 3. Near-syncopal episode PLAN: -Capsule endoscopy today per GI service -Continue monitor hemoglobin -Continue supportive care -Diet to be advanced per GI service Physician Asphalt Heater Tender note has been reviewed by physician. Signing provider agrees with the documented findings, assessment, and plan of care. Objective - Vital Signs Vital signs: Vital Signs Temp 98.3 F 03/04/22 07:52 Pulse 60 03/04/22 07:52 Resp 16 03/04/22 07:52 BP 111/61 03/04/22 07:52 Pulse Ox 100 03/04/22 07:52 FiO2 Intake & Output 03/03/22 03/04/22 03/04/22 18:59 06:59 18:59 Intake Total 180 Output Total 50 Balance 180 -50 Intake: Oral 180 Output: Stool 50 Other: Voiding Method Toilet # Voids 4 2 # Bowel Movements 2 8 1 - Labs CBC & Chem 7: 03/04/22 08:40 03/04/22 08:40 Labs: Abnormal Lab Results - Last 24 Hours (Table) 03/04/22 03/04/22 Range/Units 08:40 08:40 RBC 2.94 L (4.30-5.90) m/uL Hgb 9.4 L (13.0-17.5) gm/dL Hct 30.5 L (39.0-53.0) % MCV 103.9 H (80.0-100.0) fL MCHC 30.9 L (31.0-37.0) g/dL RDW 18.0 H (11.5-15.5) % Chloride 109 H (98-107) mmol/L Creatinine 1.51 H (0.66-1.25) mg/dL Glucose 102 H (74-99) mg/dL
--- NOTE | 2022-03-04 14:50 | P.PN ---
Subjective Progress Note Date: 03/04/22 Principal diagnosis: GI bleed Patient seen and examined is a follow-up for GI bleed. He reported bowel movement this morning that was maroon and bright red in color. No associated abdominal pain, no nausea or vomiting. He's been afebrile. Patient had recent EGD and colonoscopy during his last admission last month. It was thought that he had a possible diverticular bleed. Today he is undergoing a small bowel video capsule endoscopy. Hemoglobin stable at 9.4. Objective - Vital Signs Vital signs: Vital Signs Temp 98.3 F 03/04/22 07:52 Pulse 60 03/04/22 07:52 Resp 16 03/04/22 07:52 BP 111/61 03/04/22 07:52 Pulse Ox 100 03/04/22 07:52 FiO2 Intake & Output 03/03/22 03/04/22 03/04/22 18:59 06:59 18:59 Intake Total 180 Balance 180 Intake: Oral 180 Other: Voiding Method Toilet # Voids 4 2 # Bowel Movements 2 8 2 - Exam General appearance: The patient is alert, oriented, appears in no acute distress. HET: Head is normocephalic and atraumatic. Conjunctiva pink. Sclera anicteric. Neck: Supple without lymphadenopathy. Abdomen: Soft, nontender, nondistended with bowel sounds. No guarding or rigidity. Extremities: Normal skin color and turgor. No pedal edema Skin: No rashes, no jaundice Neurological: No focal deficits. Alert and oriented -3. - Labs CBC & Chem 7: 03/04/22 08:40 03/04/22 08:40 Labs: Abnormal Lab Results - Last 24 Hours (Table) 03/04/22 Range/Units 08:40 RBC 2.94 L (4.30-5.90) m/uL Hgb 9.4 L (13.0-17.5) gm/dL Hct 30.5 L (39.0-53.0) % MCV 103.9 H (80.0-100.0) fL MCHC 30.9 L (31.0-37.0) g/dL RDW 18.0 H (11.5-15.5) % Assessment and Plan (1) Anemia Narrative/Plan: 87-year-old male who was recently hospitalized with acute blood loss anemia who underwent EGD and colonoscopy on 02/18/[address] Dotson. Colonoscopy found to diluted blood throughout right-sided colon is with a suspected diverticular bleed. Patient was readmitted for syncope. He was noted to have a hemoglobin of 6.3 and given 2 units of PRBC transfusion. He is on oral iron. Reported dark stool. Patient had a bowel movement that is dark however no melena. He was seen by general surgery who ordered a tagged RBC with no evidence of bleeding. Will proceed with small bowel video capsule endoscopy. Patient undergoing small bowel video capsule endoscopy currently. Hemoglobin stable 9.4 Current Visit: Yes Status: Acute Code(s): D64.9 - ANEMIA, UNSPECIFIED SNOMED Code(s): 891200110 (2) Melena Current Visit: No Status: Acute Code(s): K92.1 - MELENA SNOMED Code(s): 9884375 (3) Near syncope Current Visit: Yes Status: Acute Code(s): R55 - SYNCOPE AND COLLAPSE SNOMED Code(s): 439901871 (4) Diverticulosis Current Visit: Yes Status: Acute Code(s): K57.90 - DVRTCLOS OF INTEST, PART UNSP, W/O PERF OR ABSCESS W/O BLEED SNOMED Code(s): 531946310 Plan: 1. Continue symptomatic supportive care 2. May advance to heart healthy diet 3. Daily CBC, transfuse for hemoglobin less than 7 4. Protonix for GI prophylaxis 5. Further recommendations forthcoming pending small bowel video capsule endoscopy results Thank you for this consultation, we will continue to follow. Dr. Bubba Dotson I agree with the dictator's note, documented as a scribe by Moriah Day.
[2022-03-05] MEDS: SODIUM CHLORIDE 0.9% 1,000 ML IV SCH (01:30)
[2022-03-05 06:16] LABS: Anisocytosis Slight; HCT 28.9 % (39.0-53.0); HGB 8.9 gm/dL (13.0-17.5); Hypochromasia Moderate; MCH 32.4 pg (25.0-35.0); MCHC 30.7 g/dL (31.0-37.0); MCV 105.4 fL (80.0-100.0); Macrocytosis Marked; Mean Platelet Volume 8.1; Platelet Count 175 k/uL (150-450); RBC 2.74 m/uL (4.30-5.90); RDW 18.1 % (11.5-15.5)
[2022-03-05] MEDS: METOPROLOL SUCCINATE (ER) 100 MG TAB.ER.24H PO SCH (08:22)
[2022-03-05] MEDS: PANTOPRAZOLE 40 MG/10 ML VIAL IV SCH (08:22)
[2022-03-05] MEDS: LOSARTAN 50 MG TAB PO SCH (08:22)
[2022-03-05] MEDS: amLODIPine 5 MG TAB PO SCH (08:22)
--- NOTE | 2022-03-05 08:56 | P.DS ---
Providers Date of admission: 03/01/22 23:43 Expected date of discharge: 03/05/22 Attending physician: Kuldip Bautista Consults: 03/01/22 23:43 Consult Physician Routine Consulting Provider: Vasyl Coelho Consult Reason/Comments: gib Do you want consulting provider notified?: Yes 03/03/22 08:31 Consult Physician Routine Consulting Provider: Ynes Dotson Consult Reason/Comments: GIB, recent EGD and colonoscopy Do you want consulting provider notified?: Yes Primary care physician: [facility] Course: H&P Date: 03/02/22 This is an 87-year-old male patient of Dr. Bautista with past medical history of hypertension, hyperlipidemia, coronary artery disease status post CABG, status post permanent pacemaker, history of prostate cancer, chronic kidney disease stage III, chronic anemia, borderline diabetes. Patient follows with plumber apprentice Dr. Villagran. Patient was recently admitted for a GI bleed 10 days ago. At that time he underwent a EGD that did not show an active bleed. Patient presented to the emergency room for evaluation. Patient stated that he felt lightheaded and dizzy. Is having significant discomfort that he could not pinpoint. And requested that his call an ambulance. He did take a nitro glycerin under his tongue. Per his he had an episode of near syncope event where he became unresponsive. At this time patient is found resting comfortably in bed in no acute distress. Hemoglobin 6.3 currently receiving a second unit packed red blood cells. Patient will be scheduled for a red cell tag for Thursday. Patient continues to show some confusion unable to answer all questions appropriately. Patient remains afebrile, heart rate 59, respirations 16, blood pressure 145/80, pulse ox 93% on room air. WC 5.8, hemoglobin 6.3 currently transfuse second unit, sodium 135, potassium 4.0, BUN 29, creatinine 1.73. 03/03: Patient remains mildly confused. He was nothing by mouth this morning for nuclear medicine red cell tag study which showed no evidence of active GI bleeding. We will add in a consult for GI. Patient is being followed by Dr. Fisher as well with no plan for any intervention at this time. Repeat hemoglobin is 9.4. Consult for PT and OT added. 03/04: Patient is undergoing capsule endoscopy this morning. Patient did have quite a bit of blood this morning rectally. He denies any abdominal pain, he complains of being hungry. Patient's is at the bedside and questions answered. Hemoglobin is 9.4. BUN 18 and creatinine 1.51. 03/05: Patient has been afebrile, heart rate 58, blood pressure 1 116/61, pulse ox 96% on room air. WBC 5.0, hemoglobin 8.9, platelet count 175. Capsule biopsy will be read by GI later today. We'll plan for discharge home today, CBC will be obtained weekly for the next 8 weeks at the office. Patient will be discharged today in stable condition. DISCHARGE DIAGNOSES 1. Acute GI bleed with tarry stools most likely secondary to AVM. 2. Acute blood loss anemia due to acute GI bleed. 3. Hypertension. 4. Hyperlipidemia. 5. Coronary artery disease with previous CABG. 6. History of prostate cancer, stable. 7. History of permanent pacemaker, stable. 8. Chronic kidney disease stage III with baseline creatinine of 1.5. 9. Chronic ALLERGIES. 10. Borderline diabetes. DISCHARGE PLAN Home Greater than 35 minutes was utilized and coordinating patient's discharge. Impression and plan of care have been directed as dictated by the signing physician. Mary Leiva nurse practitioner acting as scribe for signing physician. Patient Condition at Discharge: Serious Plan - Discharge Summary Discharge Rx Participant: Yes New Discharge Prescriptions: Continue Multivitamins, Thera [Multivitamin (formulary)] 1 tab PO DAILY Metoprolol Succinate (ER) [Toprol XL] 100 mg PO DAILY Losartan Potassium 100 mg PO DAILY ALPRAZolam [Xanax] 0.25 mg PO BID PRN PRN Reason: Anxiety Melatonin 5 mg PO HS PRN PRN Reason: Insomnia amLODIPine [Norvasc] 5 mg PO DAILY Aspirin EC [Ecotrin Low Dose] 81 mg PO DAILY Pravastatin Sodium [Pravachol] 40 mg PO DAILY Pantoprazole Sodium [Protonix] 40 mg PO DAILY Ferrous Sulfate [Iron] 325 mg PO DAILY Bumetanide [BUMEX] 0.5 mg PO TUTH Azelastine HCl 2 sprays EA NOSTRIL BID Discharge Medication List ALPRAZolam [Xanax] 0.25 mg PO BID PRN 02/16/22 [History] Aspirin EC [Ecotrin Low Dose] 81 mg PO DAILY 02/16/22 [History] Bumetanide [BUMEX] 0.5 mg PO TUTH 02/16/22 [History] Ferrous Sulfate [Iron] 325 mg PO DAILY 02/16/22 [History] Losartan Potassium 100 mg PO DAILY 02/16/22 [History] Melatonin 5 mg PO HS PRN 02/16/22 [History] Metoprolol Succinate (ER) [Toprol XL] 100 mg PO DAILY 02/16/22 [History] Multivitamins, Thera [Multivitamin (formulary)] 1 tab PO DAILY 02/16/22 [History] Pantoprazole Sodium [Protonix] 40 mg PO DAILY 02/16/22 [History] Pravastatin Sodium [Pravachol] 40 mg PO DAILY 02/16/22 [History] amLODIPine [Norvasc] 5 mg PO DAILY 02/16/22 [History] Azelastine HCl 2 sprays EA NOSTRIL BID 03/02/22 [History] Follow up Appointment(s)/Referral(s): Kuldip Bautista MD [Primary Care Provider] - 03/12/22 1:30 pm Ynes Dotson MD [STAFF PHYSICIAN] - 03/12/22 3:30 pm Ambulatory/Diagnostic Orders: Complete Blood Count w/diff [LAB.AMB] Location: None Selected Discharge Disposition: HOME SELF-CARE
[2022-03-05 09:37] VITALS: BP 116/61; PULSE 58; TEMP 97.8
--- NOTE | 2022-03-05 15:57 | P.PN ---
Subjective Progress Note Date: 03/05/22 Principal diagnosis: GI bleed Patient seen and examined is a follow-up for GI bleed. He denies any bloody bowel movements today. He underwent a small bowel video capsule endoscopy yesterday that showed no active bleeding. Patient is being discharged today. He denies abdominal pain, nausea or vomiting. Objective - Vital Signs Vital signs: Vital Signs Temp 98.6 F 03/05/22 02:00 Pulse 60 03/05/22 02:00 Resp 16 03/05/22 02:00 BP 124/71 03/05/22 02:00 Pulse Ox 97 03/05/22 02:00 FiO2 Intake & Output 03/04/22 03/05/22 03/05/22 18:59 06:59 18:59 Intake Total 480 Output Total 50 Balance 430 Intake: Oral 480 Output: Stool 50 Other: Voiding Method Toilet # Voids 4 2 # Bowel Movements 4 - Exam General appearance: The patient is alert, oriented, appears in no acute distress. HET: Head is normocephalic and atraumatic. Conjunctiva pink. Sclera anicteric. Neck: Supple without lymphadenopathy. Abdomen: Soft, nontender, nondistended with bowel sounds. No guarding or rigidity. Extremities: Normal skin color and turgor. No pedal edema Skin: No rashes, no jaundice Neurological: No focal deficits. Alert and oriented -3. - Labs CBC & Chem 7: 03/05/22 04:15 03/04/22 08:40 Labs: Abnormal Lab Results - Last 24 Hours (Table) 03/04/22 03/05/22 Range/Units 08:40 04:15 RBC 2.74 L (4.30-5.90) m/uL Hgb 8.9 L (13.0-17.5) gm/dL Hct 28.9 L (39.0-53.0) % MCV 105.4 H (80.0-100.0) fL MCHC 30.7 L (31.0-37.0) g/dL RDW 18.1 H (11.5-15.5) % Macrocytosis Marked A Chloride 109 H (98-107) mmol/L Creatinine 1.51 H (0.66-1.25) mg/dL Glucose 102 H (74-99) mg/dL Assessment and Plan (1) Anemia Narrative/Plan: 87-year-old male who was recently hospitalized with acute blood loss anemia who underwent EGD and colonoscopy on 02/18/[address] Dotson. Colonoscopy found to diluted blood throughout right-sided colon is with a suspected diverticular bleed. Patient was readmitted for syncope. He was noted to have a hemoglobin of 6.3 and given 2 units of PRBC transfusion. He is on oral iron. Reported dark stool. Patient had a bowel movement that is dark however no melena. He was seen by general surgery who ordered a tagged RBC with no evidence of bleeding. Will proceed with small bowel video capsule endoscopy. Patient undergoing small bowel video capsule endoscopy currently. Hemoglobin stable 9.4 Status: Acute Code(s): D64.9 - ANEMIA, UNSPECIFIED SNOMED Code(s): 065149111 (2) Melena Narrative/Plan: Small bowel video capsule endoscopy completed yesterday. No active bleeding seen in the small bowel. Status: Acute Code(s): K92.1 - MELENA SNOMED Code(s): 1500051 (3) Near syncope Status: Acute Code(s): R55 - SYNCOPE AND COLLAPSE SNOMED Code(s): 064273868 (4) Diverticulosis Status: Acute Code(s): K57.90 - DVRTCLOS OF INTEST, PART UNSP, W/O PERF OR ABSCESS W/O BLEED SNOMED Code(s): 572831511 Plan: 1. Continue symptomatic supportive care 2. May advance to heart healthy diet 3. Protonix for GI prophylaxis 4. No further endoscopic evaluation at this time. Patient to follow-up with Dr. Dotson 1-2 weeks. Discuss with patient and his small bowel capsule endoscopy results showing no active bleeding in the small bowel. Thank you for this consultation, patient is cleared from gastroenterology for discharge. Dr. Bubba Dotson I agree with the dictator's note, documented as a scribe by Moriah Day.
== END 2022-03-05 12:25 | disposition home or self-care (01) | DRG 378 ==
LOC: EC 20:30 → 4SSUR 23:43
PROVIDERS: ADMIT Internal Medicine Geriatric Medicine; ATTEND Internal Medicine Geriatric Medicine
PROC: 30233N1 Transfusion of Nonautologous Red Blood Cells into Peripheral Vein, Percutaneous Approach (ICD-10-PCS; principal; 2022-03-02)
DX: K55.21 Angiodysplasia of colon with hemorrhage (principal); N17.9 Acute kidney failure, unspecified; D62 Acute posthemorrhagic anemia; E78.5 Hyperlipidemia, unspecified; I12.9 Hypertensive chronic kidney disease with stage 1 through stage 4 chronic kidney disease, or unspecified chronic kidney disease; N18.30 Chronic kidney disease, stage 3 unspecified; K57.30 Diverticulosis of large intestine without perforation or abscess without bleeding; I25.10 Atherosclerotic heart disease of native coronary artery without angina pectoris; D63.1 Anemia in chronic kidney disease; R73.03 Prediabetes; K44.9 Diaphragmatic hernia without obstruction or gangrene; K29.60 Other gastritis without bleeding; Z95.1 Presence of aortocoronary bypass graft; Z86.010 Personal history of colon polyps; Z79.82 Long term (current) use of aspirin; Z79.899 Other long term (current) drug therapy; Z95.0 Presence of cardiac pacemaker; Z85.46 Personal history of malignant neoplasm of prostate; Z87.19 Personal history of other diseases of the digestive system; Z87.891 Personal history of nicotine dependence
CPT/HCPCS: 36415; 78278; 80048; 80053; 81003; 83605; 83735; 83880; 84100; 84443; 84484; 85025; 85027; 85610; 85730; 86850; 86900; 86901; 86920; 91110; 93005; 94760; 96360; 96361; 99291

== ENCOUNTER 2024-08-06 13:27 | Emergency (ER) | payer MEDICARE ==
[2024-08-06 13:46] VITALS: RESP 18
--- NOTE | 2024-08-06 13:51 | ED ---
General Adult HPI - General Stated complaint: Hypertension Time Seen by Provider: 08/06/24 13:28 Source: patient, RN notes reviewed, old records reviewed - History of Present Illness Initial comments: This is an 89-year-old male who presents to the emergency department patient has significant dementia. Patient went to use the car and the car alarm went off so he called the police and the police came called the ambulance and the patient was was altered but according to the it is pretty much his baseline because he has significant dementia. was not at the scene to inform him of this but she showed up almost immediately upon his arrival here. They did note that his blood pressure was high and the states he does not take his blood pressure meds because he does not want to. Patient himself has no complaints currently denies any pain any headache he denies any blurred vision patient denies any chest pain palpitations or difficulty breathing. - Related Data Home Medications Medication Instructions Recorded Confirmed ALPRAZolam [Xanax] 0.25 mg PO BID PRN 02/16/22 03/02/22 Aspirin EC [Ecotrin Low Dose] 81 mg PO DAILY 02/16/22 03/02/22 Bumetanide [BUMEX] 0.5 mg PO TUTH 02/16/22 03/02/22 Ferrous Sulfate [Iron] 325 mg PO DAILY 02/16/22 03/02/22 Losartan Potassium 100 mg PO DAILY 02/16/22 03/02/22 Melatonin 5 mg PO HS PRN 02/16/22 03/02/22 Metoprolol Succinate (ER) [Toprol 100 mg PO DAILY 02/16/22 03/02/22 XL] Multivitamins, Thera [Multivitamin 1 tab PO DAILY 02/16/22 03/02/22 (formulary)] Pantoprazole Sodium [Protonix] 40 mg PO DAILY 02/16/22 03/02/22 Pravastatin Sodium [Pravachol] 40 mg PO DAILY 02/16/22 03/02/22 amLODIPine [Norvasc] 5 mg PO DAILY 02/16/22 03/02/22 Azelastine HCl [Astelin Nasal 2 sprays EA NOSTRIL BID 03/02/22 03/02/22 [place]] Allergies Allergy/AdvReac Type Severity Reaction Status Date / Time No Known Allergies Allergy Verified 11/09/24 13:34 Review of Systems ROS Statement: Those systems with pertinent positive or pertinent negative responses have been documented in the HPI. ROS Other: All systems not noted in ROS Statement are negative. Past Medical History Past Medical History: Cancer, Hyperlipidemia, Hypertension History of Any Multi-Drug Resistant Organisms: None Reported Past Surgical History: Coronary Bypass/CABG, Heart Catheterization With Stent, Hernia Repair, Orthopedic Surgery, Pacemaker, Prostate Surgery Past Anesthesia/Blood Transfusion Reactions: No Reported Reaction Date of Last Stent Placement:: unsure Type of Cardiac Device: Permanent Pacemaker Device Placement Date:: unsure Past Psychological History: No Psychological Hx Reported Smoking Status: Never smoker Past Alcohol Use History: Daily Past Drug Use History: None Reported General Exam - General Exam Comments Initial Comments: GENERAL: Patient is well-developed and well-nourished. Patient is nontoxic and well- hydrated and is in no acute distress. ENT: Neck is soft and supple. No significant lymphadenopathy is noted. Oropharynx is clear. Moist mucous membranes. Neck has full range of motion without eliciting any pain. EYES: The sclera were anicteric and conjunctiva were pink and moist. Extraocular movements were intact and pupils were equal round and reactive to light. Eyelids were unremarkable. PULMONARY: Unlabored respirations. Good breath sounds bilaterally. No audible rales rhonchi or wheezing was noted. CARDIOVASCULAR: There is a regular rate and rhythm without any murmurs gallops or rubs. ABDOMEN: Soft and nontender with normal bowel sounds. SKIN: Skin is clear with no lesions or rashes and otherwise unremarkable. NEUROLOGIC: Patient is alert and oriented x 2. Cranial nerves II through XII are grossly intact. Motor and sensory are also intact. Normal speech, volume and content. Symmetrical smile. MUSCULOSKELETAL: Normal extremities with adequate strength and full range of motion. LYMPHATICS: No significant lymphadenopathy is noted PSYCHIATRIC: Normal psychiatric evaluation. Course Vital Signs 08/06/24 08/06/24 08/06/24 13:34 13:59 14:33 Temperature 97.9 F Pulse Rate 83 76 72 Respiratory 18 18 Rate Blood Pressure 193/112 185/103 173/99 O2 Sat by Pulse 97 97 Oximetry Medical Decision Making - Medical Decision Making EKG is interpreted by myself. EKG shows a sinus rhythm with an occasional PAC at 81 bpm IN interval is under 95 QRS is 152 QT interval is 413 QTc is 451. Patient's EKG shows a right bundle branch block Was pt. sent in by a medical professional or institution ([facility], [employer], urgent care, hospital, or prison...) When possible be specific @ -No Did you speak to anyone other than the patient for history (EMS, parent, family, police, friend...)? What history was obtained from this source @ - came and gave most of the history because he has significant dementia. Did you review nursing and triage notes (agree or disagree)? Why? @ -I reviewed and agree with nursing and triage notes Were old charts reviewed (outside hosp., previous admission, EMS record, old EKG, old radiological studies, urgent care reports/EKG's, prison records)? Report findings @ -No old charts were reviewed Differential Diagnosis? @ -Hypertensive emergency, hypertensive urgency, hypertension, noncompliant medications, this is not an all-inclusive list EKG interpreted by me (3pts min.). @ -As above X-rays interpreted by me (1pt min.). @ -Chest x-ray shows no acute abnormality CT interpreted by me (1pt min.). @ -None done U/S interpreted by me (1pt. min.). @ -None done What testing was considered but not performed or refused? (CT, X-rays, U/S, labs)? Why? @ -None What meds were considered but not given or refused? Why? @ -None Did you discuss the management of the patient with other professionals (professionals i.e. [facility]itt, [employer], lab, RT, psych nurse, social welfare administrator, tipping machine operator automatic, teacher, benefits officer, nurse case manager)? Give summary @ -No Was smoking cessation discussed for >3mins.? @ -No Was critical care preformed (if so, how long)? @ -No Were there social determinants of health that impacted care today? How? (Homelessness, low income, unemployed, alcoholism, drug addiction, transportation, low edu. Level, literacy, decrease access to med. care, residential, rehab)? @ -No Was there de-escalation of care discussed even if they declined (Discuss DNR or withdrawal of care, Hospice)? DNR status @ -No What co-morbidities impacted this encounter? (DM, HTN, Smoking, COPD, CAD, Cancer, CVA, ARF, Chemo, Hep., AIDS, mental health diagnosis, sleep apnea, morbid obesity)? @ -None Was patient admitted / discharged? Hospital course, mention meds given and route, prescriptions, significant lab abnormalities, going to OR and other pertinent info. @ -Patient had no symptoms on arrival and throughout his ED stay he had no symptoms. His stated that the patient was at his baseline status. And she was comfortable taking him home. states that she tries to get him to take his medicines but most days he refuses and he is 89 years old and she is not going to force him. Undiagnosed new problem with uncertain prognosis? @ -No Drug Therapy requiring intensive monitoring for toxicity (Heparin, Nitro, Insulin, Cardizem)? @ -No Were any procedures done? @ -No Diagnosis/symptom? @ -Hypertension Acute, or Chronic, or Acute on Chronic? @ -Acute Uncomplicated (without systemic symptoms) or Complicated (systemic symptoms)? @ -Complicated Side effects of treatment? @ -No Exacerbation, Progression, or Severe Exacerbation? @ -No Poses a threat to life or bodily function? How? (Chest pain, USA, IA, pneumonia, PE, COPD, DKA, ARF, appy, cholecystitis, CVA, Diverticulitis, Homicidal, Suicidal, threat to staff... and all critical care pts) @ -No Diagnosis/symptom? @ -Noncompliant with hypertensive meds Acute, or Chronic, or Acute on Chronic? @ -Acute Uncomplicated (without systemic symptoms) or Complicated (systemic symptoms)? @ -Uncomplicated Side effects of treatment? @ -None Exacerbation, Progression, or Severe Exacerbation] @ -No Poses a threat to life or bodily function? @ -No - Lab Data Result diagrams: 08/06/24 13:42 08/06/24 13:42 Lab Results 08/06/24 08/06/24 Range/Units 13:42 13:42 WBC 5.7 (3.8-10.6) k/uL RBC 3.85 L (4.30-5.90) m/uL Hgb 12.8 L (13.0-17.5) gm/dL Hct 38.8 L (39.0-53.0) % MCV 100.8 H (80.0-100.0) fL MCH 33.2 (25.0-35.0) pg MCHC 32.9 (31.0-37.0) g/dL RDW 13.8 (11.5-15.5) % Plt Count 132 L (150-450) k/uL MPV 8.1 Neutrophils % 71 % Lymphocytes % 20 % Monocytes % 5 % Eosinophils % 2 % Basophils % 0 % Neutrophils # 4.0 (1.3-7.7) k/uL Lymphocytes # 1.2 (1.0-4.8) k/uL Monocytes # 0.3 (0-1.0) k/uL Eosinophils # 0.1 (0-0.7) k/uL Basophils # 0.0 (0-0.2) k/uL Macrocytosis Slight Sodium 140 (137-145) mmol/L Potassium 4.0 (3.5-5.1) mmol/L Chloride 104 (98-107) mmol/L Carbon Dioxide 31 H (22-30) mmol/L Anion Gap 5 mmol/L BUN 21 H (9-20) mg/dL Creatinine 1.39 H (0.66-1.25) mg/dL Est GFR (CKD-EPI)AfAm 52 (>60 ml/min/1.73 sqM) Est GFR (CKD-EPI)NonAf 45 (>60 ml/min/1.73 sqM) Glucose 79 (74-99) mg/dL Calcium 8.9 (8.4-10.2) mg/dL Magnesium 1.9 (1.6-2.3) mg/dL Total Bilirubin 0.9 (0.2-1.3) mg/dL AST 31 (17-59) U/L ALT 16 (4-49) U/L Alkaline Phosphatase 42 (38-126) U/L Total Protein 6.4 (6.3-8.2) g/dL Albumin 4.1 (3.5-5.0) g/dL Disposition Clinical Impression: Hypertension, Noncompliance with medications Disposition: HOME SELF-CARE Condition: Good Instructions (If sedation given, give patient instructions): Chronic Hypertension (ED) Is patient prescribed a controlled substance at d/c from ED?: No Referrals: Kuldip Bautista MD [Primary Care Provider] - 1-2 days Time of Disposition: 15:09
[2024-08-06] MEDS: LABETALOL 5 MG/ML VIAL MDV IVP STA (14:00)
--- NOTE | 2024-08-06 14:27 | XR ---
EXAMINATION TYPE: XR chest 2V DATE OF EXAM: 08/06/2024 2:21 PM COMPARISON: Previous chest radiograph dated 02/14/2022. CLINICAL INDICATION: Male, 89 years old with history of Difficulty breathing ; [facility] TECHNIQUE: XR chest 2V Frontal and lateral views of the chest. FINDINGS: Cardiomegaly, similar to prior studies. Median sternotomy wires and postsurgical changes suggestive of CABG. Left chest wall cardiac pacemaker device with leads overlying the left atrium and right ventricle. Low lung volumes. Prominence of the interstitial markings bilaterally no sizable pleural effusion. Appreciable pneumothorax. IMPRESSION: Cardiomegaly and mild pulmonary vascular congestive changes. No sizable pleural effusions. [facility], , 08/06/2024 2:25 PM
[2024-08-06 14:43] LABS: Basophils % (A) 0 %; Eosinophils # (A) 0.1 k/uL (0-0.7); Eosinophils % (A) 2 %; HCT 38.8 % (39.0-53.0); HGB 12.8 gm/dL (13.0-17.5); Lymphocytes # (A) 1.2 k/uL (1.0-4.8); Lymphocytes % (A) 20 %; MCH 33.2 pg (25.0-35.0); MCHC 32.9 g/dL (31.0-37.0); MCV 100.8 fL (80.0-100.0); Macrocytosis Slight; Mean Platelet Volume 8.1; Monocytes # (A) 0.3 k/uL (0-1.0); Monocytes % (A) 5 %; Neutrophils % (A) 71 %; Platelet Count 132 k/uL (150-450); RBC 3.85 m/uL (4.30-5.90); RDW 13.8 % (11.5-15.5); WBC 5.7 k/uL (3.8-10.6)
[2024-08-06 14:54] LABS: ALT 16 U/L (4-49); AST 31 U/L (17-59); African American GFR (CKD) 52 (>60 ml/min/1.73 sqM); Albumin 4.1 g/dL (3.5-5.0); Alkaline Phosphatase 42 U/L (38-126); Anion Gap 5 mmol/L; Blood Urea Nitrogen 21 mg/dL (9-20); Calcium 8.9 mg/dL (8.4-10.2); Carbon Dioxide 31 mmol/L (22-30); Chloride 104 mmol/L (98-107); Glucose 79 mg/dL (74-99); Magnesium 1.9 mg/dL (1.6-2.3); Non-African American GFR(CKD) 45 (>60 ml/min/1.73 sqM); Sodium 140 mmol/L (137-145); Total Bilirubin 0.9 mg/dL (0.2-1.3); Total Protein 6.4 g/dL (6.3-8.2)
[2024-08-06 15:37] VITALS: BP 162/95; PULSE 68; TEMP 98.1
== END 2024-08-06 15:45 | disposition home or self-care (01) ==
LOC: EC 13:27
DX: I10 Essential (primary) hypertension (principal); Z91.148 Patient's other noncompliance with medication regimen for other reason
CPT/HCPCS: 36415; 93005; 80053; 83735; 85025; 71046; 99284; 96374; J1920